=== PATIENT | female | born 1945 | race African-American/Black ===

== ENCOUNTER → 2017-11-27 | Day surgery (SDC) | payer OTHER | END | disposition home or self-care (01) | LOC: JRADIR 11:54 | PROVIDERS: ATTEND Nurse Practitioner Acute Care | PROC: 02HV33Z Insertion of Infusion Device into Superior Vena Cava, Percutaneous Approach (ICD-10-PCS; principal; 2017-11-27) | PROC: B518ZZA Fluoroscopy of Superior Vena Cava, Guidance (ICD-10-PCS; 2017-11-27) | DX: A49.02 Methicillin resistant Staphylococcus aureus infection, unspecified site (principal); Z79.2 Long term (current) use of antibiotics | CPT/HCPCS: 36569; 77001-TC-FY; C1751 ==

== ENCOUNTER 2018-11-26 14:14 | Inpatient (IN) | payer OTHER ==
--- NOTE | 2018-11-26 14:31 | PDOC ---
Rapid Medical Evaluation Time Seen by Provider: 11/26/18 14:27 Medical Evaluation: Allergies Allergy/AdvReac Type Severity Reaction Status Date / Time diphenhydramine Allergy Verified 10/07/18 10:55 [From Benadryl] Penicillins Allergy Verified 10/07/18 10:55 11/26/18 14:27 I performed a brief in-person evaluation of this patient. Chief complaint: Sent by Dr. King for admission to Dr. Eduardo for bilat LE ulcers and cellulitis Pertinent physical exam findings: SpO2 91% (baseline per patient) I have ordered the following: CBC, CMP, blood cultures, EKG, CXR Patient to proceed to the ED for further evaluation. Discharge Disposition - Diagnosis Cellulitis - Referrals - Patient Instructions - Post Discharge Activity
--- NOTE | 2018-11-26 15:16 | CON.ID ---
Consult Consult Specialty:: infectious diseases Referred by:: dr head Reason for Consultation:: b/l no healing ulcers of the leg - History of Present Illness Chief Complaint: pain swelling and erythema of he legs and draining non healing wound History of Present Illness: 73 year old female with a significant PMH of COPD, DM, GERD, HTN, cellulitis to the lower extremities, and malignant neoplasm of the sigmoid colon who presents to the emergency department for admission for IV abx 2/2 LE cellulitis. Patient is denying any symptoms at this time other than her chronic LE pain. Denies recent change in pain or new swelling in LE. patient had received oral abx of no avail The patient denies chest pain, shortness of breath, headache and dizziness. Denies fever, chills, nausea, vomit, diarrhea and constipation. Denies dysuria, frequency, urgency and hematuria. - History Source History Provided By: Patient Limitations to Obtaining History: No Limitations - Alcohol/Substance Use Hx Alcohol Use: No - Smoking History Smoking history: Never smoked Have you smoked in the past 12 months: No Aproximately how many cigarettes per day: 10 If you are a former smoker, when did you quit?: 2008 Home Medications - Allergies Allergies/Adverse Reactions: Allergies Allergy/AdvReac Type Severity Reaction Status Date / Time diphenhydramine Allergy Verified 01/14/19 11:50 [From Benadryl] Penicillins Allergy Verified 01/14/19 11:50 - Home Medications Home Medications: Ambulatory Orders Acetaminophen [Tylenol .Extra-Strength -] 500 mg PO Q6H PRN 11/26/18 Albuterol 2.5/Ipratropium 0.5 [Duoneb -] 1 amp NEB Q6H PRN 11/26/18 Albuterol Sulfate Inhaler - [Ventolin HFA Inhaler -] 2 inh PO Q6H 11/26/18 Amlodipine Besylate 5 mg PO DAILY 11/26/18 Ammonium Lactate Cream [Lac-Hydrin 12% Cream -] 1 applic TP QID 11/26/18 Ascorbic Acid [Vitamin C -] 500 mg PO DAILY 11/26/18 Aspirin [ASA -] 81 mg PO DAILY 11/26/18 Bismuth Subsalicylate [Pepto-Bismol -] 15 ml PO ASDIR PRN 11/26/18 Budesonide/Formeterol Fumarate [SYMBICORT 160/4.5mcg -] 2 inh PO BID 11/26/18 Celecoxib [CeleBREX -] 100 mg PO BID 11/26/18 Chloroxylenol 1 gm MC DAILY 11/26/18 Glimepiride [Amaryl -] 2 mg PO DAILY 11/26/18 Hydrocodone/Acetaminophen [Hydrocodone-Acetamin 7.5-325] 1 each PO Q6H 11/26/18 Lactobacillus Acidophilus [Bacid -] 1 each PO BID 11/26/18 Levothyroxine [Synthroid -] 100 mcg PO DAILY 11/26/18 Lisinopril 20 mg PO DAILY 11/26/18 Mag Hydrox/Al Hydrox/Simeth [Mylanta Oral Suspension -] 30 ml PO Q6H 11/26/18 Methyl Salicylate/Menth/Camph [Bengay Ultra Strength Cream] 113 gm TP BID Multivitamin,Ther and Minerals [Vitamin and Minerals] 1 each PO DAILY 11/26/18 Omeprazole 20 mg PO DAILY 11/26/18 Ondansetron [Zofran Odt -] 4 mg SL TID PRN 11/26/18 Simethicone [Gas-X] 125 mg PO QID 11/26/18 Umeclidinium [place] [Incruse Ellipta] 1 puff IH DAILY 11/26/18 Meropenem 1 gm IVPB Q8H 12/24/18 Furosemide [Lasix] 40 mg PO DAILY 01/25/19 Review of Systems - Review of Systems Constitutional: reports: No Symptoms Eyes: reports: No Symptoms HENT: reports: No Symptoms Neck: reports: No Symptoms Cardiovascular: reports: No Symptoms Respiratory: reports: No Symptoms Gastrointestinal: reports: No Symptoms Genitourinary: reports: No Symptoms Musculoskeletal: reports: Other Integumentary: reports: Blister, Bruising, Erythema Neurological: reports: No Symptoms Endocrine: reports: No Symptoms Hematology/Lymphatic: reports: No Symptoms Psychiatric: reports: No Symptoms Physical Exam Vital Signs: Vital Signs Temperature 98.4 F 11/26/18 14:26 Pulse Rate 90 11/26/18 14:26 Respiratory Rate 20 11/26/18 14:26 Blood Pressure 131/95 11/26/18 14:26 O2 Sat by Pulse Oximetry (%) 96 03/15/19 14:26 Constitutional: Yes: Well Nourished, No Distress, Calm, Obese HENT: Yes: Atraumatic, Normocephalic Neck: Yes: Supple, Trachea Midline Cardiovascular: Yes: Regular Rate and Rhythm Respiratory: Yes: Regular, CTA Bilaterally Gastrointestinal: Yes: Normal Bowel Sounds, Soft Musculoskeletal: Yes: Other Extremities: Yes: Erythema, Other Integumentary: Yes: Erythema, Other Wound/Incision: Yes: Dressing Removed, Other Neurological: Yes: Alert, Oriented Psychiatric: Yes: Alert, Oriented Imaging - Results Chest X-ray: Report Reviewed, Image Reviewed Assessment/Plan Problem List - Problems (1) Cellulitis Code(s): L03.90 - CELLULITIS, UNSPECIFIED (2) 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
--- NOTE | 2018-11-26 17:35 | PDOC ---
History of Present Illness - General Chief Complaint: Redness To Affected Area Stated Complaint: SENT BY PCP/LEG INFECTION Time Seen by Provider: 11/26/18 14:27 - History of Present Illness Initial Comments: 11/26/18 17:34 The patient is a 73 year old female with a significant PMH of COPD, DM, GERD, HTN, cellulitis to the lower extremities, and malignant neoplasm of the sigmoid colon who presents to the emergency department sent in by Dr. King, infectious diseases for admission for IV abx / LE cellulitis. Patient is denying any symptoms at this time other than her chronic LE pain. Denies recent change in pain or new swelling in LE. The patient denies chest pain, shortness of breath, headache and dizziness. Denies fever, chills, nausea, vomit, diarrhea and constipation. Denies dysuria, frequency, urgency and hematuria. Allergies: NKA Past surgical history: None reported. Social history: No reported alcohol or drug use. Former smoker. Past History - Past Medical History Allergies/Adverse Reactions: Allergies Allergy/AdvReac Type Severity Reaction Status Date / Time diphenhydramine Allergy Verified 10/07/18 10:55 [From Benadryl] Penicillins Allergy Verified 10/07/18 10:55 Home Medications: Ambulatory Orders Acetaminophen [Tylenol -] 500 mg PO Q6H PRN 11/26/18 Albuterol 2.5/Ipratropium 0.5 [Duoneb -] 1 amp NEB Q6H PRN 11/26/18 Albuterol Sulfate Inhaler - [Ventolin Hfa Inhaler -] 2 inh PO Q6H 11/26/18 Amlodipine Besylate 5 mg PO DAILY 11/26/18 Ammonium Lactate Cream [Lac-Hydrin 12% *Cream*] 1 applic TP QID 11/26/18 Ascorbic Acid [Vitamin C -] 500 mg PO DAILY 11/26/18 Aspirin [ASA -] 81 mg PO DAILY 11/26/18 Bismuth Subsalicylate [Pepto-Bismol -] 15 ml PO ASDIR PRN 11/26/18 Budesonide/Formeterol Fumarate [SYMBICORT 160/4.5mcg -] 2 inh PO BID 11/26/18 Celecoxib [Celebrex -] 100 mg PO BID 11/26/18 Chloroxylenol 1 gm MC DAILY 11/26/18 Glimepiride [Amaryl -] 2 mg PO DAILY 11/26/18 Hydrocodone/Acetaminophen [Hydrocodon-Acetaminoph 7.5-325] 1 each PO Q6H Lactobacillus Acidophilus [Bacid -] 1 each PO BID 11/26/18 Levothyroxine [Synthroid -] 100 mcg PO DAILY 11/26/18 Lisinopril 20 mg PO DAILY 11/26/18 Mag Hydrox/Al Hydrox/Simeth [Mylanta *Suspension*] 30 ml PO Q6H 11/26/18 Methyl Salicylate/Menth/Camph [Bengay Pain Relieving Cream] 113 gm TP BID Multivitamin,Ther and Minerals [Vitamin and Minerals] 1 each PO DAILY 11/26/18 Omeprazole 20 mg PO DAILY 11/26/18 Ondansetron [Zofran Odt -] 4 mg SL TID PRN 11/26/18 Simethicone [Gas-X] 125 mg PO QID 11/26/18 Umeclidinium [place] [Incruse Ellipta] 1 puff IH DAILY 11/26/18 Cancer: Yes (colon) COPD: Yes Diabetes: Yes HTN: Yes - Suicide/Smoking/Psychosocial Hx Smoking History: Never smoked Have you smoked in the past 12 months: No Number of Cigarettes Smoked Daily: 10 If you are a former smoker, when did you quit?: 2008 Information on smoking cessation initiated: No Hx Alcohol Use: No Drug/Substance Use Hx: No Review of Systems - Review of Systems Comments:: 11/26/18 17:35 GENERAL/CONSTITUTIONAL: No fever or chills. No weakness. HEAD, EYES, EARS, NOSE AND THROAT: No change in vision. No ear pain or discharge. No sore throat. GASTROINTESTINAL: No nausea, vomiting, diarrhea or constipation. GENITOURINARY: No dysuria, frequency, or change in urination. CARDIOVASCULAR: No chest pain or shortness of breath. RESPIRATORY: No cough, wheezing, or hemoptysis. MUSCULOSKELETAL: +b/l LE pain. No neck or back pain. SKIN: No rash NEUROLOGIC: No headache, vertigo, loss of consciousness, or change in strength/ sensation. ENDOCRINE: No increased thirst. No abnormal weight change. HEMATOLOGIC/LYMPHATIC: No anemia, easy bleeding, or history of blood clots. ALLERGIC/IMMUNOLOGIC: No hives or skin allergy. *Physical Exam - Vital Signs Last Vital Signs Temp Pulse Resp BP Pulse Ox 98.4 F 90 20 131/95 96 11/26/18 14:26 11/26/18 14:26 11/26/18 14:26 11/26/18 14:26 11/26/18 14:26 - Physical Exam Comments: 11/26/18 17:36 GENERAL: Awake, alert, and fully oriented, in no acute distress HEAD: No signs of trauma EYES: EOMI, sclera anicteric, conjunctiva clear ENT: Oropharynx clear without exudates. Moist mucosa LUNGS: Breath sounds equal, clear to auscultation bilaterally. No wheezes, and no crackles HEART: Regular rate and rhythm, normal S1 and S2, no murmurs, rubs or gallops ABDOMEN: Soft, nontender, normoactive bowel sounds. No guarding, no rebound. No masses EXTREMITIES: b/l LE cellulitis NEUROLOGICAL: Normal speech, cranial nerves intact, equal strength and sensation b/l Moderate Sedation - Procedure Monitoring Vital Signs: Procedure Monitoring Vital Signs Temperature 98.4 F 11/26/18 14:26 Pulse Rate 90 11/26/18 14:26 Respiratory Rate 20 11/26/18 14:26 Blood Pressure 131/95 11/26/18 14:26 O2 Sat by Pulse Oximetry (%) 96 11/26/18 14:26 ED Treatment Course - LABORATORY CBC & Chemistry Diagram: 11/26/18 19:25 11/26/18 19:22 Medical Decision Making - Medical Decision Making 11/26/18 17:30 73yo F hx COPD, DM, colon ca, venous insufficiency, hypothyroidism presents to the ED for admission 2/2 VRE on outpt cultures from LE. Per Dr. King, pt has fulminiant cellulitis, he recommends linezolid (he has ordered) and to add ertapenem 1G if her kidney function is ok. Labs currently pending. 11/26/18 19:[address] IV/obtain labs despite multiple attempts Long 20G US guided IV placed in L forearm, labs drawn and sent Pending kidney fx, pt will need ertapenem abx Case signed out to oncoming attending for f/u on labs, ordering IV abx if kidney fx wnl *DC/Admit/Observation/Transfer Diagnosis at time of Disposition: Cellulitis - Discharge Dispostion Decision to Admit order Date/Time: Decision to Admit Order Category Date Time Status Decision to Admit to Hospital Routine Admission 11/26/18 16:42 Active - Referrals - Patient Instructions - Post Discharge Activity
--- NOTE | 2018-11-26 18:10 | HP ---
Admitting History and Physical - Primary Care Physician PCP: Lily Eduardo - Admission Chief Complaint: b/l teresa cellulitis History of Present Illness: 73 year old female with a significant PMH of COPD, DM, GERD, HTN, cellulitis to the lower extremities, and malignant neoplasm of the sigmoid colon who presents to the emergency department sent in by Dr. King, infectious diseases for admission for IV abx 2/ LE cellulitis. Patient is denying any symptoms at this time other than her chronic LE pain. Denies recent change in pain or new swelling in LE. - Past Medical History Cardiovascular: Yes: HTN Gastrointestinal: Yes: GERD Endocrine: Yes: Diabetes Mellitus - Smoking History Smoking history: Never smoked Have you smoked in the past 12 months: No Aproximately how many cigarettes per day: 10 If you are a former smoker, when did you quit?: 2008 - Alcohol/Substance Use Hx Alcohol Use: No Home Medications - Allergies Allergies/Adverse Reactions: Allergies Allergy/AdvReac Type Severity Reaction Status Date / Time diphenhydramine Allergy Verified 10/07/18 10:55 [From Benadryl] Penicillins Allergy Verified 10/07/18 10:55 - Home Medications Home Medications: Ambulatory Orders Acetaminophen [Tylenol -] 500 mg PO Q6H PRN 11/26/18 Albuterol 2.5/Ipratropium 0.5 [Duoneb -] 1 amp NEB Q6H PRN 11/26/18 Albuterol Sulfate Inhaler - [Ventolin Hfa Inhaler -] 2 inh PO Q6H 11/26/18 Amlodipine Besylate 5 mg PO DAILY 11/26/18 Ammonium Lactate Cream [Lac-Hydrin 12% *Cream*] 1 applic TP QID 11/26/18 Ascorbic Acid [Vitamin C -] 500 mg PO DAILY 11/26/18 Aspirin [ASA -] 81 mg PO DAILY 11/26/18 Bismuth Subsalicylate [Pepto-Bismol -] 15 ml PO ASDIR PRN 11/26/18 Budesonide/Formeterol Fumarate [SYMBICORT 160/4.5mcg -] 2 inh PO BID 11/26/18 Celecoxib [Celebrex -] 100 mg PO BID 11/26/18 Chloroxylenol 1 gm MC DAILY 11/26/18 Glimepiride [Amaryl -] 2 mg PO DAILY 11/26/18 Hydrocodone/Acetaminophen [Hydrocodon-Acetaminoph 7.5-325] 1 each PO Q6H Lactobacillus Acidophilus [Bacid -] 1 each PO BID 11/26/18 Levothyroxine [Synthroid -] 100 mcg PO DAILY 11/26/18 Lisinopril 20 mg PO DAILY 11/26/18 Mag Hydrox/Al Hydrox/Simeth [Mylanta *Suspension*] 30 ml PO Q6H 11/26/18 Methyl Salicylate/Menth/Camph [Bengay Pain Relieving Cream] 113 gm TP BID Multivitamin,Ther and Minerals [Vitamin and Minerals] 1 each PO DAILY 11/26/18 Omeprazole 20 mg PO DAILY 11/26/18 Ondansetron [Zofran Odt -] 4 mg SL TID PRN 11/26/18 Simethicone [Gas-X] 125 mg PO QID 11/26/18 Umeclidinium [place] [Incruse Ellipta] 1 puff IH DAILY 11/26/18 Physical Examination Vital Signs: Vital Signs Temperature 98.4 F 11/26/18 14:26 Pulse Rate 90 11/26/18 14:26 Respiratory Rate 20 11/26/18 14:26 Blood Pressure 131/95 11/26/18 14:26 O2 Sat by Pulse Oximetry (%) 96 11/26/18 14:26 Constitutional: Yes: No Distress HENT: Yes: Atraumatic Neck: Yes: Supple Cardiovascular: Yes: Regular Rate and Rhythm Respiratory: Yes: CTA Bilaterally Gastrointestinal: Yes: Normal Bowel Sounds Extremities: Yes: Other (b/llex cellulitis) Neurological: Yes: Alert, Oriented Problem List - Problems (1) Cellulitis Assessment/Plan: on iv abx wound care dressing change Code(s): L03.90 - CELLULITIS, UNSPECIFIED (2) 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 Code(s): I87.333 - CHRONIC VENOUS HTN W ULCER AND INFLAM OF BILATERAL LOW EXTRM ; L97.919 - NON-PRS CHRONIC ULC UNSP PRT OF R LOW LEG W UNSP SEVERITY; L97.929 - NON-PRS CHRONIC ULC UNSP PRT OF L LOW LEG W UNSP SEVERITY (3) HTN (hypertension) Assessment/Plan: onmeds monitor bp Code(s): I10 - ESSENTIAL (PRIMARY) HYPERTENSION (4) Diabetes Assessment/Plan: on insulin bgms Code(s): E11.9 - TYPE 2 DIABETES MELLITUS WITHOUT COMPLICATIONS Assessment/Plan Active Medications Generic Name Dose Route Start Last Admin Trade Name Freq PRN Reason Stop Dose Admin Linezolid 600 mg 11/26/18 22:00 Zyvox (Restricted To Id) - PO BID ROMEL Active Medications Generic Name Dose Route Start Last Admin Trade Name Freq PRN Reason Stop Dose Admin Acetaminophen 650 mg 11/26/18 18:14 11/29/18 16:49 Tylenol - PO 650 mg Q6H PRN Administration FEVER Amlodipine Besylate 5 mg 11/27/18 10:00 11/29/18 09:12 Norvasc - PO 5 mg DAILY ROMEL Administration Aspirin 81 mg 11/27/18 10:00 11/29/18 09:12 Asa - PO 81 mg DAILY ROMEL Administration Budesonide/Formoterol Fumarate 2 puff 11/26/18 22:00 11/29/18 09:13 Symbicort 160/4.5mcg - IH 2 puff BID ROMEL Administration Docusate Sodium 100 mg 11/26/18 18:14 Colace - PO Q12H PRN CONSTIPATION Furosemide 40 mg 11/27/18 10:00 11/29/18 09:12 Lasix - PO 40 mg DAILY ROMEL Administration Glimepiride 2 mg 11/27/18 07:00 11/29/18 09:12 Amaryl - PO 2 mg DAILY@0700 ROMEL Administration Heparin Sodium (Porcine) 5,000 unit 11/26/18 22:00 11/29/18 09:12 Heparin - SQ 5,000 unit BID ROMEL Administration Linezolid 600 mg in 300 mls @ 300 mls/hr 11/27/18 18:00 11/29/18 17:37 Zyvox 600 Mg Premix Bag (Restricted To Id) - IVPB 300 mls/hr BID@0600,1800 ROMEL Administration Protocol Meropenem 1 gm/ Dextrose 100 mls @ 200 mls/hr 11/27/18 18:00 11/29/18 17:09 IVPB 200 mls/hr Q8H-IV ROMEL Administration Insulin Aspart 1 vial 11/26/18 22:00 11/29/18 16:46 Novolog Vial Sliding Scale - SQ Not Given ACHS ROMEL Protocol Levothyroxine Sodium 100 mcg 11/27/18 07:00 11/29/18 06:26 Synthroid - PO 100 mcg DAILY@0700 ROMEL Administration Lisinopril 20 mg 11/27/18 10:00 11/29/18 09:12 Prinivil PO 20 mg DAILY ROMEL Administration Pantoprazole Sodium 20 mg 11/27/18 10:00 11/29/18 09:12 Protonix - PO 20 mg DAILY ROMEL Administration
[2018-11-26] MEDS ORDERED: LIDOCAINE 2.5%/PRILOCAINE 2.5% (5 Gram/TUBE) TP ONE (18:53)
[2018-11-26 20:00] LABS: BASO % 0.9 % (0-2.0); EOS % 5.5 % (0-4.5); HEMATOCRIT 32.5 % (32.4-45.2); HEMOGLOBIN 9.9 GM/dL (10.7-15.3); MCH 25.2 pg (25.7-33.7); MCHC 30.6 g/dl (32.0-36.0); MEAN CELL VOLUME 82.5 fl (80-96); MEAN PLT VOLUME 8.2 fl (7.5-11.1); MONO % 8.2 % (3.8-10.2); NEUT % 68.4 % (42.8-82.8); PLATELET COUNT 471 K/MM3 (134-434); RBC 3.94 M/mm3 (3.60-5.2); RDW 20.9 % (11.6-15.6); WHITE BLOOD COUNT 10.8 K/mm3 (4.0-10.0)
[2018-11-26 20:47] LABS: ALBUMIN 2.9 g/dl (3.4-5.0); ALK PHOS 142 U/L (45-117); ANION GAP 5 MMOL/L (8-16); BILIRUBIN,TOTAL 0.3 mg/dL (0.2-1); BLOOD UREA NITROGEN 25 mg/dL (7-18); CALCIUM 9.9 mg/dL (8.5-10.1); CHLORIDE 101 mmol/L (98-107); CO2 33 mmol/L (21-32); CREATININE 1.1 mg/dL (0.55-1.3); GLUCOSE,RANDOM 176 mg/dL (74-106); POTASSIUM 5.2 mmol/L (3.5-5.1); SGOT/AST 32 U/L (15-37); SGPT/ALT 15 U/L (13-61); SODIUM 139 mmol/L (136-145)
[2018-11-26 21:12] LABS: ANISOCYTOSIS 1+
[2018-11-26] MEDS ORDERED: oxyCODONE HCL 5 MG TABLET ONE (21:42)
[2018-11-26] MEDS: oxyCODONE HCL 5 MG TABLET PO PRN (21:44)
[2018-11-26] MEDS: HEPARIN NA (PORCINE) 5,000 UNITS/ML 1ML VIAL SQ SCH (23:47)
[2018-11-26] MEDS: BUDESONIDE/FORMETEROL FUMARATE 160/4.5 mcg INHALER IH SCH (23:47)
[2018-11-26] MEDS: LINEZOLID 600 MG TABLET (RESTRICTED TO ID) PO SCH (23:47)
[2018-11-26] MEDS ORDERED: INSULIN (NOVOLOG) ASPART 100 UNITS/ML 10ML VIAL ONE (23:49)
[2018-11-26] MEDS: INSULIN SLIDING SCALE (NOVOLOG) 1 VIAL SQ SCH (23:50)
[2018-11-27] MEDS: oxyCODONE HCL 5 MG TABLET PO PRN ×3 (04:52→23:04)
[2018-11-27] MEDS: ACETAMINOPHEN 325 MG TABLET (FP) PO PRN (04:54)
[2018-11-27] MEDS: INSULIN SLIDING SCALE (NOVOLOG) 1 VIAL SQ SCH ×4 (06:29→22:50)
[2018-11-27] MEDS: GLIMEPIRIDE 2 MG TABLET (FP) PO SCH (06:29)
[2018-11-27] MEDS: LEVOTHYROXINE NA 100 MCG TABLET (FP) PO SCH (06:30)
[2018-11-27 06:58] LABS: BASO % 0.5 % (0-2.0); EOS % 3.8 % (0-4.5); HEMATOCRIT 32.6 % (32.4-45.2); HEMOGLOBIN 9.9 GM/dL (10.7-15.3); LYMPH % 19.9 % (8-40); MCH 24.8 pg (25.7-33.7); MCHC 30.3 g/dl (32.0-36.0); MONO % 8.1 % (3.8-10.2); NEUT % 67.7 % (42.8-82.8); PLATELET COUNT 433 K/MM3 (134-434); RBC 3.97 M/mm3 (3.60-5.2); RDW 20.6 % (11.6-15.6); WHITE BLOOD COUNT 9.7 K/mm3 (4.0-10.0)
[2018-11-27 07:34] LABS: ALBUMIN 2.8 g/dl (3.4-5.0); ALK PHOS 140 U/L (45-117); ANION GAP 6 MMOL/L (8-16); BILIRUBIN,TOTAL 0.4 mg/dL (0.2-1); BLOOD UREA NITROGEN 27 mg/dL (7-18); CALCIUM 9.3 mg/dL (8.5-10.1); CHLORIDE 102 mmol/L (98-107); CO2 31 mmol/L (21-32); CREATININE 1.3 mg/dL (0.55-1.3); GLUCOSE,RANDOM 169 mg/dL (74-106); POTASSIUM 4.8 mmol/L (3.5-5.1); SGOT/AST 11 U/L (15-37); SGPT/ALT 11 U/L (13-61); SODIUM 139 mmol/L (136-145); TOT PROT 7.7 g/dl (6.4-8.2)
[2018-11-27] MEDS ORDERED: PT OWN MED DRAWER 7, Y5N ONE ×3 (09:00→10:47)
[2018-11-27] MEDS: ASPIRIN 81 MG CHEWABLE TABLETS PO SCH (10:57)
[2018-11-27] MEDS: amLODIPine BESYLATE 5 MG TABLET (FP) PO SCH (10:58)
[2018-11-27] MEDS: LISINOPRIL 20 MG TABLET (FP) PO SCH (10:58)
[2018-11-27] MEDS: FUROSEMIDE 40 MG TABLET (FP) PO SCH (10:58)
[2018-11-27] MEDS: PANTOPRAZOLE 20 MG TABLET (FP) PO SCH (10:59)
[2018-11-27] MEDS: HEPARIN NA (PORCINE) 5,000 UNITS/ML 1ML VIAL SQ SCH ×2 (10:59→22:49)
[2018-11-27] MEDS: BUDESONIDE/FORMETEROL FUMARATE 160/4.5 mcg INHALER IH SCH ×2 (11:00→22:52)
[2018-11-27] MEDS: LINEZOLID 600 MG TABLET (RESTRICTED TO ID) PO SCH ×2 (11:10→11:15)
--- NOTE | 2018-11-27 13:14 | EKG ---
Test Reason : Blood Pressure : / mmHG Vent. Rate : 071 BPM Atrial Rate : 071 BPM P-R Int : 190 ms QRS Dur : 102 ms QT Int : 378 ms P-R-T Axes : 044 -20 047 degrees QTc Int : 410 ms NORMAL SINUS RHYTHM MINIMAL VOLTAGE CRITERIA FOR LVH, MAY BE NORMAL VARIANT BORDERLINE ECG NO PREVIOUS ECGS AVAILABLE Confirmed by MD ADAN, NATALIA ([id number]) on 11/27/2018 1:14:13 PM Referred By: Confirmed By:NATALIA ARELLANO MD
--- NOTE | 2018-11-27 15:32 | PN ---
Progress Note, Physician - Current Medication List Current Medications: Active Medications Acetaminophen (Tylenol -) 650 mg PO Q6H PRN PRN Reason: FEVER Last Admin: 11/27/18 04:54 Dose: 650 mg Amlodipine Besylate (Norvasc -) 5 mg PO DAILY [facility] Last Admin: 11/27/18 10:58 Dose: 5 mg Aspirin (Asa -) 81 mg PO DAILY [facility] Last Admin: 11/27/18 10:57 Dose: 81 mg Budesonide/Formoterol Fumarate (Symbicort 160/4.5mcg -) 2 puff IH BID [facility] Last Admin: 11/27/18 11:00 Dose: 2 puff Docusate Sodium (Colace -) 100 mg PO Q12H PRN PRN Reason: CONSTIPATION Furosemide (Lasix -) 40 mg PO DAILY [facility] Last Admin: 11/27/18 10:58 Dose: 40 mg Glimepiride (Amaryl -) 2 mg PO DAILY@0700 [facility] Last Admin: 11/27/18 06:29 Dose: 2 mg Heparin Sodium (Porcine) (Heparin -) 5,000 unit SQ BID [facility] Last Admin: 11/27/18 10:59 Dose: 5,000 unit Insulin Aspart (Novolog Vial Sliding Scale -) 1 vial SQ [facility]; Protocol Last Admin: 11/27/18 11:26 Dose: Not Given Levothyroxine Sodium (Synthroid -) 100 mcg PO DAILY@0700 [facility] Last Admin: 11/27/18 06:30 Dose: 100 mcg Linezolid (Zyvox (Restricted To Id) -) 600 mg PO BID [facility] Last Admin: 11/27/18 11:15 Dose: 600 mg Lisinopril (Prinivil) 20 mg PO DAILY [facility] Last Admin: 11/27/18 10:58 Dose: 20 mg Oxycodone HCl (Roxicodone -) 10 mg PO Q6H PRN PRN Reason: PAIN LEVEL 4 - 6 Last Admin: 11/27/18 10:55 Dose: 10 mg Pantoprazole Sodium (Protonix -) 20 mg PO DAILY [facility] Last Admin: 11/27/18 10:59 Dose: 20 mg - Objective Vital Signs: Vital Signs Temperature 97.4 F L 11/27/18 13:22 Pulse Rate 78 11/27/18 13:22 Respiratory Rate 16 11/27/18 13:22 Blood Pressure 151/52 L 11/27/18 13:22 O2 Sat by Pulse Oximetry (%) 94 L 11/27/18 09:00 Constitutional: Yes: No Distress HENT: Yes: Atraumatic Neck: Yes: Supple Cardiovascular: Yes: Regular Rate and Rhythm Respiratory: Yes: CTA Bilaterally Gastrointestinal: Yes: Normal Bowel Sounds Extremities: Yes: WNL Edema: No Peripheral Pulses WNL: Yes Neurological: Yes: Alert, Oriented Labs: CBC, BMP 11/27/18 05:20 11/27/18 05:20 Problem List - Problems (1) Cellulitis Assessment/Plan: on iv abx wound care dressing change Code(s): L03.90 - CELLULITIS, UNSPECIFIED (2) 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
--- NOTE | 2018-11-27 15:40 | PN ---
Progress Note (short form) - Note Progress Note: Vascular Surgery Pt seen and examined in wound care clinic yesterday. Pt with LLE weeping, with cellulitis . Can not be controlled with po antibiotics. Pt sent to ER for IV antibiotics. Pt needs alginate and sergio for compression for wound care. ID on case. Lavell Kern DO
--- NOTE | 2018-11-27 18:01 | PN ---
Progress Note, Physician History of Present Illness: Pt seen and examined. Events noted. Labs reviewed. She c/o severe LLE pain, remains febrile. No distress. - Current Medication List Current Medications: Active Medications Acetaminophen (Tylenol -) 650 mg PO Q6H PRN PRN Reason: FEVER Last Admin: 11/27/18 04:54 Dose: 650 mg Amlodipine Besylate (Norvasc -) 5 mg PO DAILY [facility] Last Admin: 11/27/18 10:58 Dose: 5 mg Aspirin (Asa -) 81 mg PO DAILY [facility] Last Admin: 11/27/18 10:57 Dose: 81 mg Budesonide/Formoterol Fumarate (Symbicort 160/4.5mcg -) 2 puff IH BID [facility] Last Admin: 11/27/18 11:00 Dose: 2 puff Docusate Sodium (Colace -) 100 mg PO Q12H PRN PRN Reason: CONSTIPATION Furosemide (Lasix -) 40 mg PO DAILY [facility] Last Admin: 11/27/18 10:58 Dose: 40 mg Glimepiride (Amaryl -) 2 mg PO DAILY@0700 [facility] Last Admin: 11/27/18 06:29 Dose: 2 mg Heparin Sodium (Porcine) (Heparin -) 5,000 unit SQ BID [facility] Last Admin: 11/27/18 10:59 Dose: 5,000 unit Linezolid 600 mg/ (Miscellaneous) 300 mls @ 300 mls/hr IVPB Q12H [facility]; Protocol Meropenem 1 gm/ Dextrose 100 mls @ 200 mls/hr IVPB Q8H-IV [facility] Insulin Aspart (Novolog Vial Sliding Scale -) 1 vial SQ ACHS [facility]; Protocol Last Admin: 11/27/18 16:42 Dose: Not Given Levothyroxine Sodium (Synthroid -) 100 mcg PO DAILY@0700 [facility] Last Admin: 11/27/18 06:30 Dose: 100 mcg Lisinopril (Prinivil) 20 mg PO DAILY [facility] Last Admin: 11/27/18 10:58 Dose: 20 mg Oxycodone HCl (Roxicodone -) 10 mg PO Q6H PRN PRN Reason: PAIN LEVEL 4 - 6 Last Admin: 11/27/18 10:55 Dose: 10 mg Pantoprazole Sodium (Protonix -) 20 mg PO DAILY [facility] Last Admin: 11/27/18 10:59 Dose: 20 mg - Objective Vital Signs: Vital Signs Temperature 98.2 F 11/27/18 17:45 Pulse Rate 70 11/27/18 17:45 Respiratory Rate 73 H 11/27/18 17:45 Blood Pressure 134/62 11/27/18 17:45 O2 Sat by Pulse Oximetry (%) 94 L 11/27/18 09:00 Constitutional: Yes: No Distress Eyes: Yes: Conjunctiva Clear Cardiovascular: Yes: Regular Rate and Rhythm Respiratory: Yes: Regular Gastrointestinal: Yes: Normal Bowel Sounds, Soft, Abdomen, Obese ...Rectal Exam: Yes: Other (+colostomy) Extremities: Yes: Erythema Edema: LLE: 2+, RLE: 2+ Wound/Incision: Yes: Other (LLE ulcers oozing +malodor, +warmth/erythema/ tenderness) Neurological: Yes: Alert Labs: CBC, BMP 11/27/18 05:20 11/27/18 05:20 Laboratory Tests 11/26/18 11/26/18 11/26/18 19:22 19:25 20:11 WBC 10.8 H RBC 3.94 Hgb 9.9 L Hct 32.5 MCV 82.5 MCH 25.2 L MCHC 30.6 L RDW 20.9 H Plt Count 471 H MPV 8.2 Absolute Neuts (auto) 7.4 Neutrophils % 68.4 Lymphocytes % 17.0 Monocytes % 8.2 Eosinophils % 5.5 H Basophils % 0.9 Nucleated RBC % 0 Hypochromia 1+ Anisocytosis 1+ Sodium 139 Potassium 5.2 H Chloride 101 Carbon Dioxide 33 H Anion Gap 5 L BUN 25 H Creatinine 1.1 Creat Clearance w eGFR 48.96 POC Glucometer Random Glucose 176 H Hemoglobin A1c % 7.8 H Calcium 9.9 Total Bilirubin 0.3 AST 32 ALT 15 Alkaline Phosphatase 142 H Total Protein 8.0 Albumin 2.9 L 11/26/18 11/27/18 11/27/18 23:43 05:20 05:20 WBC 9.7 RBC 3.97 Hgb 9.9 L Hct 32.6 MCV 82.0 MCH 24.8 L MCHC 30.3 L RDW 20.6 H Plt Count 433 MPV 8.0 Absolute Neuts (auto) 6.6 Neutrophils % 67.7 Lymphocytes % 19.9 Monocytes % 8.1 Eosinophils % 3.8 Basophils % 0.5 Nucleated RBC % 0 Hypochromia Anisocytosis Sodium 139 Potassium 4.8 Chloride 102 Carbon Dioxide 31 Anion Gap 6 L BUN 27 H Creatinine 1.3 Creat Clearance w eGFR 40.38 POC Glucometer 176 Random Glucose 169 H Hemoglobin A1c % Calcium 9.3 Total Bilirubin 0.4 AST 11 L ALT 11 L Alkaline Phosphatase 140 H Total Protein 7.7 Albumin 2.8 L 11/27/18 11/27/18 11/27/18 06:28 11:09 16:28 WBC RBC Hgb Hct MCV MCH MCHC RDW Plt Count MPV Absolute Neuts (auto) Neutrophils % Lymphocytes % Monocytes % Eosinophils % Basophils % Nucleated RBC % Hypochromia Anisocytosis Sodium Potassium Chloride Carbon Dioxide Anion Gap BUN Creatinine Creat Clearance w eGFR POC Glucometer 153 183 121 Random Glucose Hemoglobin A1c % Calcium Total Bilirubin AST ALT Alkaline Phosphatase Total Protein Albumin Problem List - Problems (1) Cellulitis Code(s): L03.90 - CELLULITIS, UNSPECIFIED (2) 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 Code(s): I87.333 - CHRONIC VENOUS HTN W ULCER AND INFLAM OF BILATERAL LOW EXTRM ; L97.919 - NON-PRS CHRONIC ULC UNSP PRT OF R LOW LEG W UNSP SEVERITY; L97.929 - NON-PRS CHRONIC ULC UNSP PRT OF L LOW LEG W UNSP SEVERITY Assessment/Plan Infected LE ulcers/cellulitis DM Colon CA s/p resection/chemo hypothyroidism BP disorder COPD -- Recent wound cultures reviewed, polymicrobial infection -- continue Zyvox, add Meropenem (monitor closely for signs of allergic reaction as d/w RN) -- continue wound care, elevate legs -- follow up blood culture results
[2018-11-27] MEDS: MEROPENEM 1 GM in DEXTROSE 5%-WATER 100 ML IVPB SCH ×2 (18:09→21:15)
[2018-11-27] MEDS: LINEZOLID 600 MG PREMIX BAG 600 MG/300 ML BAG IVPB SCH (21:15)
[2018-11-28] MEDS ORDERED: PT OWN MED DRAWER 7, Y5N ONE ×5 (01:20→21:09)
[2018-11-28] MEDS: MEROPENEM 1 GM in DEXTROSE 5%-WATER 100 ML IVPB SCH ×3 (01:33→18:21)
[2018-11-28] MEDS: LINEZOLID 600 MG PREMIX BAG 600 MG/300 ML BAG IVPB SCH ×2 (05:23→18:21)
[2018-11-28] MEDS: GLIMEPIRIDE 2 MG TABLET (FP) PO SCH (06:30)
[2018-11-28] MEDS: LEVOTHYROXINE NA 100 MCG TABLET (FP) PO SCH (06:30)
[2018-11-28] MEDS: INSULIN SLIDING SCALE (NOVOLOG) 1 VIAL SQ SCH ×4 (06:31→21:27)
[2018-11-28] MEDS: amLODIPine BESYLATE 5 MG TABLET (FP) PO SCH (09:43)
[2018-11-28] MEDS: ASPIRIN 81 MG CHEWABLE TABLETS PO SCH (09:43)
[2018-11-28] MEDS: PANTOPRAZOLE 20 MG TABLET (FP) PO SCH (09:43)
[2018-11-28] MEDS: HEPARIN NA (PORCINE) 5,000 UNITS/ML 1ML VIAL SQ SCH ×2 (09:43→21:25)
[2018-11-28] MEDS: LISINOPRIL 20 MG TABLET (FP) PO SCH (09:43)
[2018-11-28] MEDS: FUROSEMIDE 40 MG TABLET (FP) PO SCH (09:43)
[2018-11-28] MEDS: oxyCODONE HCL 5 MG TABLET PO PRN ×2 (10:05→18:21)
[2018-11-28] MEDS: BUDESONIDE/FORMETEROL FUMARATE 160/4.5 mcg INHALER IH SCH ×2 (10:10→21:20)
[2018-11-28] MEDS: ACETAMINOPHEN 325 MG TABLET (FP) PO PRN ×2 (10:10→18:22)
--- NOTE | 2018-11-28 10:53 | PN ---
Progress Note, Physician History of Present Illness: Pt without new complaints. Remains afebrile. C/o LE pain L>R - Current Medication List Current Medications: Active Medications Acetaminophen (Tylenol -) 650 mg PO Q6H PRN PRN Reason: FEVER Last Admin: 11/28/18 10:10 Dose: 650 mg Amlodipine Besylate (Norvasc -) 5 mg PO DAILY [facility] Last Admin: 11/28/18 09:43 Dose: 5 mg Aspirin (Asa -) 81 mg PO DAILY [facility] Last Admin: 11/28/18 09:43 Dose: 81 mg Budesonide/Formoterol Fumarate (Symbicort 160/4.5mcg -) 2 puff IH BID [facility] Last Admin: 11/28/18 10:10 Dose: 2 puff Docusate Sodium (Colace -) 100 mg PO Q12H PRN PRN Reason: CONSTIPATION Furosemide (Lasix -) 40 mg PO DAILY [facility] Last Admin: 11/28/18 09:43 Dose: 40 mg Glimepiride (Amaryl -) 2 mg PO DAILY@0700 [facility] Last Admin: 11/28/18 06:30 Dose: 2 mg Heparin Sodium (Porcine) (Heparin -) 5,000 unit SQ BID [facility] Last Admin: 11/28/18 09:43 Dose: 5,000 unit Linezolid (Zyvox 600 Mg Premix Bag (Restricted To Id) -) 600 mg in 300 mls @ 300 mls/hr IVPB BID@0600,1800 [facility]; Protocol Last Admin: 11/28/18 05:23 Dose: 300 mls/hr Meropenem 1 gm/ Dextrose 100 mls @ 200 mls/hr IVPB Q8H-IV [facility] Last Admin: 11/28/18 09:43 Dose: 200 mls/hr Insulin Aspart (Novolog Vial Sliding Scale -) 1 vial SQ ACHS [facility]; Protocol Last Admin: 11/28/18 06:31 Dose: Not Given Levothyroxine Sodium (Synthroid -) 100 mcg PO DAILY@0700 [facility] Last Admin: 11/28/18 06:30 Dose: 100 mcg Lisinopril (Prinivil) 20 mg PO DAILY [facility] Last Admin: 11/28/18 09:43 Dose: 20 mg Oxycodone HCl (Roxicodone -) 10 mg PO Q6H PRN PRN Reason: PAIN LEVEL 4 - 6 Last Admin: 11/28/18 10:05 Dose: 10 mg Pantoprazole Sodium (Protonix -) 20 mg PO DAILY [facility] Last Admin: 11/28/18 09:43 Dose: 20 mg - Objective Vital Signs: Vital Signs Temperature 98.1 F 11/28/18 06:34 Pulse Rate 80 11/28/18 06:34 Respiratory Rate 18 11/28/18 06:34 Blood Pressure 145/85 11/28/18 06:34 O2 Sat by Pulse Oximetry (%) 94 L 11/27/18 21:00 Constitutional: Yes: No Distress Cardiovascular: Yes: Regular Rate and Rhythm Respiratory: Yes: Regular Gastrointestinal: Yes: Normal Bowel Sounds, Soft, Abdomen, Obese Edema: LLE: 2+, RLE: 2+ Wound/Incision: Yes: Other (Dressing intact) Neurological: Yes: Alert Labs: CBC, BMP 11/27/18 05:20 11/27/18 05:20 Problem List - Problems (1) Cellulitis Code(s): L03.90 - CELLULITIS, UNSPECIFIED (2) 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 Code(s): I87.333 - CHRONIC VENOUS HTN W ULCER AND INFLAM OF BILATERAL LOW EXTRM ; L97.919 - NON-PRS CHRONIC ULC UNSP PRT OF R LOW LEG W UNSP SEVERITY; L97.929 - NON-PRS CHRONIC ULC UNSP PRT OF L LOW LEG W UNSP SEVERITY Assessment/Plan Infected LE ulcers/cellulitis DM Colon CA s/p resection/chemo hypothyroidism BP disorder COPD -- Blood culture results noted: Coag neg Staph (likely contaminant) -- continue current antibiotics -- repeat blood cultures -- continue wound care, elevate legs Pt afebrile
[2018-11-28 13:06] VITALS: BMI 50.4
[2018-11-29] MEDS ORDERED: PT OWN MED DRAWER 7, Y5N ONE ×5 (01:11→09:03)
[2018-11-29] MEDS: MEROPENEM 1 GM in DEXTROSE 5%-WATER 100 ML IVPB SCH ×3 (01:12→17:09)
[2018-11-29] MEDS: oxyCODONE HCL 5 MG TABLET PO PRN ×4 (01:57→22:38)
[2018-11-29] MEDS: ACETAMINOPHEN 325 MG TABLET (FP) PO PRN ×4 (01:58→22:38)
[2018-11-29] MEDS: LINEZOLID 600 MG PREMIX BAG 600 MG/300 ML BAG IVPB SCH ×2 (06:25→17:37)
[2018-11-29] MEDS: INSULIN SLIDING SCALE (NOVOLOG) 1 VIAL SQ SCH ×4 (06:26→22:14)
[2018-11-29] MEDS: LEVOTHYROXINE NA 100 MCG TABLET (FP) PO SCH (06:26)
[2018-11-29] MEDS: ASPIRIN 81 MG CHEWABLE TABLETS PO SCH (09:12)
[2018-11-29] MEDS: GLIMEPIRIDE 2 MG TABLET (FP) PO SCH (09:12)
[2018-11-29] MEDS: HEPARIN NA (PORCINE) 5,000 UNITS/ML 1ML VIAL SQ SCH ×2 (09:12→22:14)
[2018-11-29] MEDS: PANTOPRAZOLE 20 MG TABLET (FP) PO SCH (09:12)
[2018-11-29] MEDS: LISINOPRIL 20 MG TABLET (FP) PO SCH (09:12)
[2018-11-29] MEDS: FUROSEMIDE 40 MG TABLET (FP) PO SCH (09:12)
[2018-11-29] MEDS: amLODIPine BESYLATE 5 MG TABLET (FP) PO SCH (09:12)
[2018-11-29] MEDS: BUDESONIDE/FORMETEROL FUMARATE 160/4.5 mcg INHALER IH SCH ×2 (09:13→22:15)
--- NOTE | 2018-11-29 13:35 | PN ---
Progress Note, Physician History of Present Illness: patient stable wound dressing removed wounds look good - Current Medication List Current Medications: Active Medications Acetaminophen (Tylenol -) 650 mg PO Q6H PRN PRN Reason: FEVER Last Admin: 11/29/18 09:30 Dose: 650 mg Amlodipine Besylate (Norvasc -) 5 mg PO DAILY [facility] Last Admin: 11/29/18 09:12 Dose: 5 mg Aspirin (Asa -) 81 mg PO DAILY [facility] Last Admin: 11/29/18 09:12 Dose: 81 mg Budesonide/Formoterol Fumarate (Symbicort 160/4.5mcg -) 2 puff IH BID [facility] Last Admin: 11/29/18 09:13 Dose: 2 puff Docusate Sodium (Colace -) 100 mg PO Q12H PRN PRN Reason: CONSTIPATION Furosemide (Lasix -) 40 mg PO DAILY [facility] Last Admin: 11/29/18 09:12 Dose: 40 mg Glimepiride (Amaryl -) 2 mg PO DAILY@0700 [facility] Last Admin: 11/29/18 09:12 Dose: 2 mg Heparin Sodium (Porcine) (Heparin -) 5,000 unit SQ BID [facility] Last Admin: 11/29/18 09:12 Dose: 5,000 unit Linezolid (Zyvox 600 Mg Premix Bag (Restricted To Id) -) 600 mg in 300 mls @ 300 mls/hr IVPB BID@0600,1800 [facility]; Protocol Last Admin: 11/29/18 06:25 Dose: 300 mls/hr Meropenem 1 gm/ Dextrose 100 mls @ 200 mls/hr IVPB Q8H-IV [facility] Last Admin: 11/29/18 09:12 Dose: 200 mls/hr Insulin Aspart (Novolog Vial Sliding Scale -) 1 vial SQ ACHS [facility]; Protocol Last Admin: 11/29/18 12:14 Dose: Not Given Levothyroxine Sodium (Synthroid -) 100 mcg PO DAILY@0700 [facility] Last Admin: 11/29/18 06:26 Dose: 100 mcg Lisinopril (Prinivil) 20 mg PO DAILY [facility] Last Admin: 11/29/18 09:12 Dose: 20 mg Oxycodone HCl (Roxicodone -) 10 mg PO Q6H PRN PRN Reason: PAIN LEVEL 4 - 6 Last Admin: 11/29/18 09:31 Dose: 10 mg Pantoprazole Sodium (Protonix -) 20 mg PO DAILY [facility] Last Admin: 11/29/18 09:12 Dose: 20 mg - Objective Vital Signs: Vital Signs Temperature 98.0 F 11/29/18 06:00 Pulse Rate 76 11/29/18 06:00 Respiratory Rate 20 11/29/18 06:00 Blood Pressure 151/95 11/29/18 06:00 O2 Sat by Pulse Oximetry (%) 94 L 11/28/18 20:50 Constitutional: Yes: No Distress, Calm, Obese Cardiovascular: Yes: Regular Rate and Rhythm Respiratory: Yes: Regular, CTA Bilaterally Gastrointestinal: Yes: Normal Bowel Sounds, Soft Musculoskeletal: Yes: WNL Extremities: Yes: Other Integumentary: Yes: Erythema Wound/Incision: Yes: Dressing Dry and Intact Psychiatric: Yes: Alert, Oriented Labs: CBC, BMP 11/27/18 05:20 11/27/18 05:20 Assessment/Plan Problem List - Problems (1) Cellulitis Code(s): L03.90 - CELLULITIS, UNSPECIFIED (2) 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
--- NOTE | 2018-11-29 19:09 | PN ---
Progress Note, Physician History of Present Illness: doing well - Current Medication List Current Medications: Active Medications Acetaminophen (Tylenol -) 650 mg PO Q6H PRN PRN Reason: FEVER Last Admin: 11/29/18 16:49 Dose: 650 mg Amlodipine Besylate (Norvasc -) 5 mg PO DAILY [facility] Last Admin: 11/29/18 09:12 Dose: 5 mg Aspirin (Asa -) 81 mg PO DAILY [facility] Last Admin: 11/29/18 09:12 Dose: 81 mg Budesonide/Formoterol Fumarate (Symbicort 160/4.5mcg -) 2 puff IH BID [facility] Last Admin: 11/29/18 09:13 Dose: 2 puff Docusate Sodium (Colace -) 100 mg PO Q12H PRN PRN Reason: CONSTIPATION Furosemide (Lasix -) 40 mg PO DAILY [facility] Last Admin: 11/29/18 09:12 Dose: 40 mg Glimepiride (Amaryl -) 2 mg PO DAILY@0700 [facility] Last Admin: 11/29/18 09:12 Dose: 2 mg Heparin Sodium (Porcine) (Heparin -) 5,000 unit SQ BID [facility] Last Admin: 11/29/18 09:12 Dose: 5,000 unit Linezolid (Zyvox 600 Mg Premix Bag (Restricted To Id) -) 600 mg in 300 mls @ 300 mls/hr IVPB BID@0600,1800 [facility]; Protocol Last Admin: 11/29/18 17:37 Dose: 300 mls/hr Meropenem 1 gm/ Dextrose 100 mls @ 200 mls/hr IVPB Q8H-IV [facility] Last Admin: 11/29/18 17:09 Dose: 200 mls/hr Insulin Aspart (Novolog Vial Sliding Scale -) 1 vial SQ ACHS [facility]; Protocol Last Admin: 11/29/18 16:46 Dose: Not Given Levothyroxine Sodium (Synthroid -) 100 mcg PO DAILY@0700 [facility] Last Admin: 11/29/18 06:26 Dose: 100 mcg Lisinopril (Prinivil) 20 mg PO DAILY [facility] Last Admin: 11/29/18 09:12 Dose: 20 mg Pantoprazole Sodium (Protonix -) 20 mg PO DAILY [facility] Last Admin: 11/29/18 09:12 Dose: 20 mg - Objective Vital Signs: Vital Signs Temperature 98.0 F 11/29/18 10:00 Pulse Rate 76 11/29/18 10:00 Respiratory Rate 20 11/29/18 10:00 Blood Pressure 132/74 11/29/18 10:00 O2 Sat by Pulse Oximetry (%) 94 L 11/29/18 10:00 Constitutional: Yes: No Distress HENT: Yes: Atraumatic Neck: Yes: Supple Cardiovascular: Yes: Regular Rate and Rhythm Respiratory: Yes: CTA Bilaterally Gastrointestinal: Yes: Normal Bowel Sounds Extremities: Yes: Other (b/l teresa cellulitis) Edema: Yes Edema: LLE: 2+, RLE: 2+ Neurological: Yes: Alert, Oriented Labs: CBC, BMP 11/27/18 05:20 11/27/18 05:20 Problem List - Problems (1) Cellulitis Assessment/Plan: on iv abx wound care dressing change Code(s): L03.90 - CELLULITIS, UNSPECIFIED (2) 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
[2018-11-30] MEDS ORDERED: PT OWN MED DRAWER 7, Y5N ONE ×4 (00:51→22:03)
[2018-11-30] MEDS: MEROPENEM 1 GM in DEXTROSE 5%-WATER 100 ML IVPB SCH ×3 (01:03→17:17)
[2018-11-30] MEDS: ACETAMINOPHEN 325 MG TABLET (FP) PO PRN ×2 (05:42→17:18)
[2018-11-30] MEDS: oxyCODONE HCL 5 MG TABLET PO PRN ×2 (05:42→17:17)
[2018-11-30] MEDS: INSULIN SLIDING SCALE (NOVOLOG) 1 VIAL SQ SCH ×5 (06:01→22:27)
[2018-11-30] MEDS: LEVOTHYROXINE NA 100 MCG TABLET (FP) PO SCH (06:02)
[2018-11-30] MEDS: LINEZOLID 600 MG PREMIX BAG 600 MG/300 ML BAG IVPB SCH ×2 (06:03→17:19)
[2018-11-30] MEDS: GLIMEPIRIDE 2 MG TABLET (FP) PO SCH (06:38)
[2018-11-30] MEDS: HEPARIN NA (PORCINE) 5,000 UNITS/ML 1ML VIAL SQ SCH ×2 (09:41→22:25)
[2018-11-30] MEDS: PANTOPRAZOLE 20 MG TABLET (FP) PO SCH (09:41)
[2018-11-30] MEDS: amLODIPine BESYLATE 5 MG TABLET (FP) PO SCH (09:42)
[2018-11-30] MEDS: BUDESONIDE/FORMETEROL FUMARATE 160/4.5 mcg INHALER IH SCH ×2 (09:42→22:28)
[2018-11-30] MEDS: ASPIRIN 81 MG CHEWABLE TABLETS PO SCH (09:42)
[2018-11-30] MEDS: FUROSEMIDE 40 MG TABLET (FP) PO SCH (09:42)
[2018-11-30] MEDS: LISINOPRIL 20 MG TABLET (FP) PO SCH (09:42)
--- NOTE | 2018-11-30 16:19 | PN ---
Progress Note, Physician History of Present Illness: doing well - Current Medication List Current Medications: Active Medications Acetaminophen (Tylenol -) 650 mg PO Q6H PRN PRN Reason: FEVER Last Admin: 11/30/18 05:42 Dose: 650 mg Amlodipine Besylate (Norvasc -) 5 mg PO DAILY [facility] Last Admin: 11/30/18 09:42 Dose: 5 mg Aspirin (Asa -) 81 mg PO DAILY [facility] Last Admin: 11/30/18 09:42 Dose: 81 mg Budesonide/Formoterol Fumarate (Symbicort 160/4.5mcg -) 2 puff IH BID [facility] Last Admin: 11/30/18 09:42 Dose: 2 puff Docusate Sodium (Colace -) 100 mg PO Q12H PRN PRN Reason: CONSTIPATION Furosemide (Lasix -) 40 mg PO DAILY [facility] Last Admin: 11/30/18 09:42 Dose: 40 mg Glimepiride (Amaryl -) 2 mg PO DAILY@0700 [facility] Last Admin: 11/30/18 06:38 Dose: 2 mg Heparin Sodium (Porcine) (Heparin -) 5,000 unit SQ BID [facility] Last Admin: 11/30/18 09:41 Dose: 5,000 unit Linezolid (Zyvox 600 Mg Premix Bag (Restricted To Id) -) 600 mg in 300 mls @ 300 mls/hr IVPB BID@0600,1800 [facility]; Protocol Last Admin: 11/30/18 06:03 Dose: 300 mls/hr Meropenem 1 gm/ Dextrose 100 mls @ 200 mls/hr IVPB Q8H-IV [facility] Last Admin: 11/30/18 09:39 Dose: 200 mls/hr Insulin Aspart (Novolog Vial Sliding Scale -) 1 vial SQ ACHS [facility]; Protocol Last Admin: 11/30/18 11:51 Dose: Not Given Levothyroxine Sodium (Synthroid -) 100 mcg PO DAILY@0700 [facility] Last Admin: 11/30/18 06:02 Dose: 100 mcg Lisinopril (Prinivil) 20 mg PO DAILY [facility] Last Admin: 11/30/18 09:42 Dose: 20 mg Oxycodone HCl (Roxicodone -) 10 mg PO Q6H PRN PRN Reason: PAIN SCALE 4-6 Last Admin: 11/30/18 05:42 Dose: 10 mg Pantoprazole Sodium (Protonix -) 20 mg PO DAILY [facility] Last Admin: 11/30/18 09:41 Dose: 20 mg - Objective Vital Signs: Vital Signs Temperature 97.7 F 11/30/18 09:52 Pulse Rate 78 11/30/18 09:52 Respiratory Rate 11/30/18 09:52 Blood Pressure 131/60 11/30/18 09:52 O2 Sat by Pulse Oximetry (%) 93 L 11/30/18 09:00 Constitutional: Yes: No Distress HENT: Yes: Atraumatic Neck: Yes: Supple Cardiovascular: Yes: Regular Rate and Rhythm Respiratory: Yes: CTA Bilaterally Gastrointestinal: Yes: Normal Bowel Sounds Extremities: Yes: Other (cellulitis b/l teresa) Edema: Yes Edema: LLE: 2+, RLE: 2+ Neurological: Yes: Alert, Oriented Labs: CBC, BMP 11/27/18 05:20 11/27/18 05:20 Problem List - Problems (1) Cellulitis Assessment/Plan: on iv abx wound care dressing change Code(s): L03.90 - CELLULITIS, UNSPECIFIED (2) 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
[2018-12-01] MEDS ORDERED: PT OWN MED DRAWER 7, Y5N ONE ×5 (01:16→17:05)
[2018-12-01] MEDS: MEROPENEM 1 GM in DEXTROSE 5%-WATER 100 ML IVPB SCH ×3 (01:22→17:22)
[2018-12-01] MEDS: oxyCODONE HCL 5 MG TABLET PO PRN ×3 (01:48→17:39)
[2018-12-01] MEDS: INSULIN SLIDING SCALE (NOVOLOG) 1 VIAL SQ SCH ×4 (06:24→22:28)
[2018-12-01] MEDS: LINEZOLID 600 MG PREMIX BAG 600 MG/300 ML BAG IVPB SCH ×2 (06:24→19:28)
[2018-12-01] MEDS: GLIMEPIRIDE 2 MG TABLET (FP) PO SCH (06:24)
[2018-12-01] MEDS: LEVOTHYROXINE NA 100 MCG TABLET (FP) PO SCH (06:25)
[2018-12-01] MEDS: ASPIRIN 81 MG CHEWABLE TABLETS PO SCH (10:48)
[2018-12-01] MEDS: PANTOPRAZOLE 20 MG TABLET (FP) PO SCH (10:48)
[2018-12-01] MEDS: LISINOPRIL 20 MG TABLET (FP) PO SCH (10:48)
[2018-12-01] MEDS: amLODIPine BESYLATE 5 MG TABLET (FP) PO SCH (10:48)
[2018-12-01] MEDS: FUROSEMIDE 40 MG TABLET (FP) PO SCH (10:48)
[2018-12-01] MEDS: BUDESONIDE/FORMETEROL FUMARATE 160/4.5 mcg INHALER IH SCH ×2 (10:49→22:30)
[2018-12-01] MEDS: HEPARIN NA (PORCINE) 5,000 UNITS/ML 1ML VIAL SQ SCH ×2 (10:49→22:28)
[2018-12-01] MEDS: ACETAMINOPHEN 325 MG TABLET (FP) PO PRN ×2 (10:58→17:42)
--- NOTE | 2018-12-01 13:39 | PN ---
Progress Note, Physician History of Present Illness: doing well - Current Medication List Current Medications: Active Medications Acetaminophen (Tylenol -) 650 mg PO Q6H PRN PRN Reason: FEVER Last Admin: 12/01/18 10:58 Dose: 650 mg Amlodipine Besylate (Norvasc -) 5 mg PO DAILY [facility] Last Admin: 12/01/18 10:48 Dose: 5 mg Aspirin (Asa -) 81 mg PO DAILY [facility] Last Admin: 12/01/18 10:48 Dose: 81 mg Budesonide/Formoterol Fumarate (Symbicort 160/4.5mcg -) 2 puff IH BID [facility] Last Admin: 12/01/18 10:49 Dose: Not Given Docusate Sodium (Colace -) 100 mg PO Q12H PRN PRN Reason: CONSTIPATION Furosemide (Lasix -) 40 mg PO DAILY [facility] Last Admin: 12/01/18 10:48 Dose: 40 mg Glimepiride (Amaryl -) 2 mg PO DAILY@0700 [facility] Last Admin: 12/01/18 06:24 Dose: 2 mg Heparin Sodium (Porcine) (Heparin -) 5,000 unit SQ BID [facility] Last Admin: 12/01/18 10:49 Dose: 5,000 unit Linezolid (Zyvox 600 Mg Premix Bag (Restricted To Id) -) 600 mg in 300 mls @ 300 mls/hr IVPB BID@0600,1800 [facility]; Protocol Last Admin: 12/01/18 06:24 Dose: 300 mls/hr Meropenem 1 gm/ Dextrose 100 mls @ 200 mls/hr IVPB Q8H-IV [facility] Last Admin: 12/01/18 10:49 Dose: 200 mls/hr Insulin Aspart (Novolog Vial Sliding Scale -) 1 vial SQ ACHS [facility]; Protocol Last Admin: 12/01/18 12:06 Dose: Not Given Levothyroxine Sodium (Synthroid -) 100 mcg PO DAILY@0700 [facility] Last Admin: 12/01/18 06:25 Dose: 100 mcg Lisinopril (Prinivil) 20 mg PO DAILY [facility] Last Admin: 12/01/18 10:48 Dose: 20 mg Oxycodone HCl (Roxicodone -) 10 mg PO Q6H PRN PRN Reason: PAIN SCALE 4-6 Last Admin: 12/01/18 10:57 Dose: 10 mg Pantoprazole Sodium (Protonix -) 20 mg PO DAILY [facility] Last Admin: 12/01/18 10:48 Dose: 20 mg - Objective Vital Signs: Vital Signs Temperature 97.4 F L 12/01/18 06:00 Pulse Rate 72 12/01/18 06:00 Respiratory Rate 18 12/01/18 06:00 Blood Pressure 124/60 12/01/18 06:00 O2 Sat by Pulse Oximetry (%) 93 L 11/30/18 21:00 Constitutional: Yes: No Distress HENT: Yes: Atraumatic Neck: Yes: Supple Cardiovascular: Yes: Regular Rate and Rhythm Respiratory: Yes: CTA Bilaterally Gastrointestinal: Yes: Normal Bowel Sounds Extremities: Yes: Other (b/l teresa cellulitis) Edema: No Neurological: Yes: Alert, Oriented Labs: CBC, BMP 11/27/18 05:20 11/27/18 05:20 Problem List - Problems (1) Cellulitis Assessment/Plan: on iv abx wound care dressing change Code(s): L03.90 - CELLULITIS, UNSPECIFIED (2) 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
--- NOTE | 2018-12-01 15:01 | PN ---
Progress Note, Physician History of Present Illness: stable doing well wound healing better - Current Medication List Current Medications: Active Medications Acetaminophen (Tylenol -) 650 mg PO Q6H PRN PRN Reason: FEVER Last Admin: 12/01/18 10:58 Dose: 650 mg Amlodipine Besylate (Norvasc -) 5 mg PO DAILY [facility] Last Admin: 12/01/18 10:48 Dose: 5 mg Aspirin (Asa -) 81 mg PO DAILY [facility] Last Admin: 12/01/18 10:48 Dose: 81 mg Budesonide/Formoterol Fumarate (Symbicort 160/4.5mcg -) 2 puff IH BID [facility] Last Admin: 12/01/18 10:49 Dose: Not Given Docusate Sodium (Colace -) 100 mg PO Q12H PRN PRN Reason: CONSTIPATION Furosemide (Lasix -) 40 mg PO DAILY [facility] Last Admin: 12/01/18 10:48 Dose: 40 mg Glimepiride (Amaryl -) 2 mg PO DAILY@0700 [facility] Last Admin: 12/01/18 06:24 Dose: 2 mg Heparin Sodium (Porcine) (Heparin -) 5,000 unit SQ BID [facility] Last Admin: 12/01/18 10:49 Dose: 5,000 unit Linezolid (Zyvox 600 Mg Premix Bag (Restricted To Id) -) 600 mg in 300 mls @ 300 mls/hr IVPB BID@0600,1800 [facility]; Protocol Last Admin: 12/01/18 06:24 Dose: 300 mls/hr Meropenem 1 gm/ Dextrose 100 mls @ 200 mls/hr IVPB Q8H-IV [facility] Last Admin: 12/01/18 10:49 Dose: 200 mls/hr Insulin Aspart (Novolog Vial Sliding Scale -) 1 vial SQ ACHS [facility]; Protocol Last Admin: 12/01/18 12:06 Dose: Not Given Levothyroxine Sodium (Synthroid -) 100 mcg PO DAILY@0700 [facility] Last Admin: 12/01/18 06:25 Dose: 100 mcg Lisinopril (Prinivil) 20 mg PO DAILY [facility] Last Admin: 12/01/18 10:48 Dose: 20 mg Oxycodone HCl (Roxicodone -) 10 mg PO Q6H PRN PRN Reason: PAIN SCALE 4-6 Last Admin: 12/01/18 10:57 Dose: 10 mg Pantoprazole Sodium (Protonix -) 20 mg PO DAILY [facility] Last Admin: 12/01/18 10:48 Dose: 20 mg - Objective Vital Signs: Vital Signs Temperature 98.7 F 12/01/18 13:49 Pulse Rate 82 12/01/18 13:49 Respiratory Rate 18 12/01/18 13:49 Blood Pressure 109/56 L 12/01/18 13:49 O2 Sat by Pulse Oximetry (%) 93 L 11/30/18 21:00 Constitutional: Yes: No Distress, Calm Cardiovascular: Yes: Regular Rate and Rhythm Respiratory: Yes: Regular, CTA Bilaterally Gastrointestinal: Yes: Normal Bowel Sounds, Soft Musculoskeletal: Yes: Other Extremities: Yes: Erythema (improved) Wound/Incision: Yes: Dressing Dry and Intact, Dressing Removed Neurological: Yes: Alert, Oriented Psychiatric: Yes: Alert, Oriented Labs: CBC, BMP 11/27/18 05:20 11/27/18 05:20 Assessment/Plan Problem List - Problems (1) Cellulitis Code(s): L03.90 - CELLULITIS, UNSPECIFIED (2) 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
[2018-12-01] MEDS ORDERED: MAG HYDROX/AL HYDROX/SIMETH 30 ML UNIT-DOSE CUP PO ONE (16:30)
[2018-12-01] MEDS: SIMETHICONE 80 MG TAB.CHEW (FP) PO PRN (23:05)
[2018-12-02] MEDS ORDERED: PT OWN MED DRAWER 7, Y5N ONE ×4 (02:10→17:22)
[2018-12-02] MEDS: MEROPENEM 1 GM in DEXTROSE 5%-WATER 100 ML IVPB SCH ×3 (02:12→17:37)
[2018-12-02] MEDS: oxyCODONE HCL 5 MG TABLET PO PRN ×2 (02:46→23:01)
[2018-12-02] MEDS: DOCUSATE SODIUM 100 MG CAPSULE (FP) PO PRN ×3 (02:47→22:31)
[2018-12-02] MEDS: ACETAMINOPHEN 325 MG TABLET (FP) PO PRN ×2 (02:47→23:00)
[2018-12-02] MEDS: GLIMEPIRIDE 2 MG TABLET (FP) PO SCH (06:12)
[2018-12-02] MEDS: INSULIN SLIDING SCALE (NOVOLOG) 1 VIAL SQ SCH ×4 (06:12→22:31)
[2018-12-02] MEDS: LEVOTHYROXINE NA 100 MCG TABLET (FP) PO SCH (06:12)
[2018-12-02] MEDS: LINEZOLID 600 MG PREMIX BAG 600 MG/300 ML BAG IVPB SCH ×2 (06:12→17:37)
[2018-12-02] MEDS: SIMETHICONE 80 MG TAB.CHEW (FP) PO PRN ×2 (09:21→22:31)
[2018-12-02] MEDS: PANTOPRAZOLE 20 MG TABLET (FP) PO SCH (09:21)
[2018-12-02] MEDS: ASPIRIN 81 MG CHEWABLE TABLETS PO SCH (11:27)
[2018-12-02] MEDS: HEPARIN NA (PORCINE) 5,000 UNITS/ML 1ML VIAL SQ SCH ×2 (11:28→22:31)
[2018-12-02] MEDS: FUROSEMIDE 40 MG TABLET (FP) PO SCH (11:28)
[2018-12-02] MEDS: amLODIPine BESYLATE 5 MG TABLET (FP) PO SCH (11:29)
[2018-12-02] MEDS: LISINOPRIL 20 MG TABLET (FP) PO SCH (11:29)
[2018-12-02] MEDS: BUDESONIDE/FORMETEROL FUMARATE 160/4.5 mcg INHALER IH SCH ×2 (11:31→22:30)
--- NOTE | 2018-12-02 15:46 | PN ---
Progress Note, Physician History of Present Illness: stable doing well wound healing better - Current Medication List Current Medications: Active Medications Acetaminophen (Tylenol -) 650 mg PO Q6H PRN PRN Reason: FEVER Last Admin: 12/02/18 02:47 Dose: 650 mg Amlodipine Besylate (Norvasc -) 5 mg PO DAILY [facility] Last Admin: 12/02/18 11:29 Dose: 5 mg Aspirin (Asa -) 81 mg PO DAILY [facility] Last Admin: 12/02/18 11:27 Dose: 81 mg Budesonide/Formoterol Fumarate (Symbicort 160/4.5mcg -) 2 puff IH BID [facility] Last Admin: 12/02/18 11:31 Dose: 2 puff Docusate Sodium (Colace -) 100 mg PO Q12H PRN PRN Reason: CONSTIPATION Last Admin: 12/02/18 12:13 Dose: 100 mg Furosemide (Lasix -) 40 mg PO DAILY [facility] Last Admin: 12/02/18 11:28 Dose: 40 mg Glimepiride (Amaryl -) 2 mg PO DAILY@0700 [facility] Last Admin: 12/02/18 06:12 Dose: 2 mg Heparin Sodium (Porcine) (Heparin -) 5,000 unit SQ BID [facility] Last Admin: 12/02/18 11:28 Dose: 5,000 unit Linezolid (Zyvox 600 Mg Premix Bag (Restricted To Id) -) 600 mg in 300 mls @ 300 mls/hr IVPB BID@0600,1800 [facility]; Protocol Last Admin: 12/02/18 06:12 Dose: 300 mls/hr Meropenem 1 gm/ Dextrose 100 mls @ 200 mls/hr IVPB Q8H-IV [facility] Last Admin: 12/02/18 10:29 Dose: 200 mls/hr Insulin Aspart (Novolog Vial Sliding Scale -) 1 vial SQ ACHS [facility]; Protocol Last Admin: 12/02/18 11:44 Dose: Not Given Levothyroxine Sodium (Synthroid -) 100 mcg PO DAILY@0700 [facility] Last Admin: 12/02/18 06:12 Dose: 100 mcg Lisinopril (Prinivil) 20 mg PO DAILY [facility] Last Admin: 12/02/18 11:29 Dose: 20 mg Oxycodone HCl (Roxicodone -) 10 mg PO Q6H PRN PRN Reason: PAIN SCALE 4-6 Last Admin: 12/02/18 02:46 Dose: 10 mg Pantoprazole Sodium (Protonix -) 20 mg PO DAILY [facility] Last Admin: 12/02/18 09:21 Dose: 20 mg - Objective Vital Signs: Vital Signs Temperature 98.2 F 12/02/18 13:00 Pulse Rate 77 12/02/18 13:00 Respiratory Rate 18 12/02/18 13:00 Blood Pressure 113/65 12/02/18 13:00 O2 Sat by Pulse Oximetry (%) 91 L 12/02/18 09:00 Constitutional: Yes: No Distress, Calm, Obese Cardiovascular: Yes: Regular Rate and Rhythm Respiratory: Yes: Regular, CTA Bilaterally Gastrointestinal: Yes: Normal Bowel Sounds, Soft Musculoskeletal: Yes: Other Extremities: Yes: Erythema Neurological: Yes: Alert, Oriented Psychiatric: Yes: Alert, Oriented Labs: CBC, BMP 11/27/18 05:20 11/27/18 05:20 Assessment/Plan Problem List - Problems (1) Cellulitis Code(s): L03.90 - CELLULITIS, UNSPECIFIED (2) 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
--- NOTE | 2018-12-02 18:49 | PN ---
Progress Note, Physician History of Present Illness: doing well - Current Medication List Current Medications: Active Medications Acetaminophen (Tylenol -) 650 mg PO Q6H PRN PRN Reason: FEVER Last Admin: 12/02/18 02:47 Dose: 650 mg Al Hydroxide/Mg Hydroxide (Mylanta Oral Suspension -) 30 ml PO Q6H PRN PRN Reason: DYSPEPSIA Amlodipine Besylate (Norvasc -) 5 mg PO DAILY [facility] Last Admin: 12/02/18 11:29 Dose: 5 mg Aspirin (Asa -) 81 mg PO DAILY [facility] Last Admin: 12/02/18 11:27 Dose: 81 mg Budesonide/Formoterol Fumarate (Symbicort 160/4.5mcg -) 2 puff IH BID [facility] Last Admin: 12/02/18 11:31 Dose: 2 puff Docusate Sodium (Colace -) 100 mg PO Q12H PRN PRN Reason: CONSTIPATION Last Admin: 12/02/18 12:13 Dose: 100 mg Furosemide (Lasix -) 40 mg PO DAILY [facility] Last Admin: 12/02/18 11:28 Dose: 40 mg Glimepiride (Amaryl -) 2 mg PO DAILY@0700 [facility] Last Admin: 12/02/18 06:12 Dose: 2 mg Heparin Sodium (Porcine) (Heparin -) 5,000 unit SQ BID [facility] Last Admin: 12/02/18 11:28 Dose: 5,000 unit Linezolid (Zyvox 600 Mg Premix Bag (Restricted To Id) -) 600 mg in 300 mls @ 300 mls/hr IVPB BID@0600,1800 [facility]; Protocol Last Admin: 12/02/18 17:37 Dose: 300 mls/hr Meropenem 1 gm/ Dextrose 100 mls @ 200 mls/hr IVPB Q8H-IV [facility] Last Admin: 12/02/18 17:37 Dose: 200 mls/hr Insulin Aspart (Novolog Vial Sliding Scale -) 1 vial SQ ACHS [facility]; Protocol Last Admin: 12/02/18 17:18 Dose: Not Given Levothyroxine Sodium (Synthroid -) 100 mcg PO DAILY@0700 [facility] Last Admin: 12/02/18 06:12 Dose: 100 mcg Lisinopril (Prinivil) 20 mg PO DAILY [facility] Last Admin: 12/02/18 11:29 Dose: 20 mg Oxycodone HCl (Roxicodone -) 10 mg PO Q6H PRN PRN Reason: PAIN SCALE 4-6 Last Admin: 12/02/18 02:46 Dose: 10 mg Pantoprazole Sodium (Protonix -) 20 mg PO DAILY [facility] Last Admin: 12/02/18 09:21 Dose: 20 mg Simethicone (Mylicon -) 80 mg PO QID PRN PRN Reason: INDIGESTION - Objective Vital Signs: Vital Signs Temperature 98.2 F 12/02/18 13:00 Pulse Rate 77 12/02/18 13:00 Respiratory Rate 18 12/02/18 13:00 Blood Pressure 113/65 12/02/18 13:00 O2 Sat by Pulse Oximetry (%) 91 L 12/02/18 09:00 Constitutional: Yes: No Distress HENT: Yes: Atraumatic Neck: Yes: Supple Cardiovascular: Yes: Regular Rate and Rhythm Respiratory: Yes: CTA Bilaterally Gastrointestinal: Yes: Normal Bowel Sounds, Other (colostomy bag in place) Extremities: Yes: Other (cellulitis b/l teresa) Edema: Yes Edema: LLE: 2+, RLE: 2+ Neurological: Yes: Alert, Oriented Labs: CBC, BMP 11/27/18 05:20 11/27/18 05:20 Problem List - Problems (1) Cellulitis Assessment/Plan: on iv abx wound care dressing change Code(s): L03.90 - CELLULITIS, UNSPECIFIED (2) 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
[2018-12-02] MEDS: MAG HYDROX/AL HYDROX/SIMETH 30 ML UNIT-DOSE CUP PO PRN (22:31)
[2018-12-03] MEDS ORDERED: PT OWN MED DRAWER 7, Y5N ONE ×3 (00:58→16:54)
[2018-12-03] MEDS: MEROPENEM 1 GM in DEXTROSE 5%-WATER 100 ML IVPB SCH ×3 (01:10→17:20)
[2018-12-03] MEDS: LINEZOLID 600 MG PREMIX BAG 600 MG/300 ML BAG IVPB SCH ×2 (06:29→18:12)
[2018-12-03] MEDS: LEVOTHYROXINE NA 100 MCG TABLET (FP) PO SCH (06:29)
[2018-12-03] MEDS: INSULIN SLIDING SCALE (NOVOLOG) 1 VIAL SQ SCH ×4 (06:29→23:08)
[2018-12-03] MEDS: GLIMEPIRIDE 2 MG TABLET (FP) PO SCH (08:25)
[2018-12-03] MEDS: LISINOPRIL 20 MG TABLET (FP) PO SCH (10:00)
[2018-12-03] MEDS: HEPARIN NA (PORCINE) 5,000 UNITS/ML 1ML VIAL SQ SCH (10:00)
[2018-12-03] MEDS: PANTOPRAZOLE 20 MG TABLET (FP) PO SCH (10:00)
[2018-12-03] MEDS: amLODIPine BESYLATE 5 MG TABLET (FP) PO SCH (10:00)
[2018-12-03] MEDS: ASPIRIN 81 MG CHEWABLE TABLETS PO SCH (10:00)
[2018-12-03] MEDS: FUROSEMIDE 40 MG TABLET (FP) PO SCH (10:00)
[2018-12-03] MEDS: BUDESONIDE/FORMETEROL FUMARATE 160/4.5 mcg INHALER IH SCH ×2 (10:01→23:07)
[2018-12-03] MEDS: MAG HYDROX/AL HYDROX/SIMETH 30 ML UNIT-DOSE CUP PO PRN ×2 (10:22→22:57)
[2018-12-03] MEDS: oxyCODONE HCL 5 MG TABLET PO PRN ×2 (10:22→22:58)
[2018-12-03] MEDS: SIMETHICONE 80 MG TAB.CHEW (FP) PO PRN (12:01)
[2018-12-03] MEDS: DOCUSATE SODIUM 100 MG CAPSULE (FP) PO PRN (12:01)
--- NOTE | 2018-12-03 14:30 | PN ---
Progress Note, Physician History of Present Illness: feels much better wounds looking better - Current Medication List Current Medications: Active Medications Acetaminophen (Tylenol -) 650 mg PO Q6H PRN PRN Reason: FEVER Last Admin: 12/02/18 23:00 Dose: 650 mg Al Hydroxide/Mg Hydroxide (Mylanta Oral Suspension -) 30 ml PO Q6H PRN PRN Reason: DYSPEPSIA Last Admin: 12/03/18 10:22 Dose: 30 ml Amlodipine Besylate (Norvasc -) 5 mg PO DAILY [facility] Last Admin: 12/03/18 10:00 Dose: 5 mg Aspirin (Asa -) 81 mg PO DAILY [facility] Last Admin: 12/03/18 10:00 Dose: 81 mg Budesonide/Formoterol Fumarate (Symbicort 160/4.5mcg -) 2 puff IH BID [facility] Last Admin: 12/03/18 10:01 Dose: 2 puff Docusate Sodium (Colace -) 100 mg PO Q12H PRN PRN Reason: CONSTIPATION Last Admin: 12/03/18 12:01 Dose: 100 mg Furosemide (Lasix -) 40 mg PO DAILY [facility] Last Admin: 12/03/18 10:00 Dose: 40 mg Glimepiride (Amaryl -) 2 mg PO DAILY@0700 [facility] Last Admin: 12/03/18 08:25 Dose: 2 mg Heparin Sodium (Porcine) (Heparin -) 5,000 unit SQ BID [facility] Last Admin: 12/03/18 10:00 Dose: 5,000 unit Linezolid (Zyvox 600 Mg Premix Bag (Restricted To Id) -) 600 mg in 300 mls @ 300 mls/hr IVPB BID@0600,1800 [facility]; Protocol Last Admin: 12/03/18 06:29 Dose: 300 mls/hr Meropenem 1 gm/ Dextrose 100 mls @ 200 mls/hr IVPB Q8H-IV [facility] Last Admin: 12/03/18 09:46 Dose: 200 mls/hr Insulin Aspart (Novolog Vial Sliding Scale -) 1 vial SQ ACHS [facility]; Protocol Last Admin: 12/03/18 11:54 Dose: Not Given Levothyroxine Sodium (Synthroid -) 100 mcg PO DAILY@0700 [facility] Last Admin: 12/03/18 06:29 Dose: 100 mcg Lisinopril (Prinivil) 20 mg PO DAILY [facility] Last Admin: 12/03/18 10:00 Dose: 20 mg Oxycodone HCl (Roxicodone -) 10 mg PO Q6H PRN PRN Reason: PAIN SCALE 4-6 Last Admin: 12/03/18 10:22 Dose: 10 mg Pantoprazole Sodium (Protonix -) 20 mg PO DAILY [facility] Last Admin: 12/03/18 10:00 Dose: 20 mg Simethicone (Mylicon -) 80 mg PO Q6H PRN PRN Reason: INDIGESTION Last Admin: 12/03/18 12:01 Dose: 80 mg - Objective Vital Signs: Vital Signs Temperature 98 F 12/03/18 09:00 Pulse Rate 69 12/03/18 09:00 Respiratory Rate 18 12/03/18 09:00 Blood Pressure 137/60 12/03/18 09:00 O2 Sat by Pulse Oximetry (%) 92 L 12/03/18 09:00 Constitutional: Yes: No Distress, Calm Neck: Yes: Supple, Trachea Midline Cardiovascular: Yes: Regular Rate and Rhythm Respiratory: Yes: Regular, CTA Bilaterally Gastrointestinal: Yes: Normal Bowel Sounds, Soft Extremities: Yes: Other Wound/Incision: Yes: Dressing Dry and Intact, Dressing Removed Neurological: Yes: Alert, Oriented Psychiatric: Yes: Alert, Oriented Labs: CBC, BMP 11/27/18 05:20 11/27/18 05:20 Assessment/Plan Problem List - Problems (1) Cellulitis Code(s): L03.90 - CELLULITIS, UNSPECIFIED (2) 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
--- NOTE | 2018-12-03 17:33 | PN ---
Progress Note, Physician History of Present Illness: doing well - Current Medication List Current Medications: Active Medications Acetaminophen (Tylenol -) 650 mg PO Q6H PRN PRN Reason: FEVER Last Admin: 12/02/18 23:00 Dose: 650 mg Al Hydroxide/Mg Hydroxide (Mylanta Oral Suspension -) 30 ml PO Q6H PRN PRN Reason: DYSPEPSIA Last Admin: 12/03/18 10:22 Dose: 30 ml Amlodipine Besylate (Norvasc -) 5 mg PO DAILY [facility] Last Admin: 12/03/18 10:00 Dose: 5 mg Aspirin (Asa -) 81 mg PO DAILY [facility] Last Admin: 12/03/18 10:00 Dose: 81 mg Budesonide/Formoterol Fumarate (Symbicort 160/4.5mcg -) 2 puff IH BID [facility] Last Admin: 12/03/18 10:01 Dose: 2 puff Docusate Sodium (Colace -) 100 mg PO Q12H PRN PRN Reason: CONSTIPATION Last Admin: 12/03/18 12:01 Dose: 100 mg Furosemide (Lasix -) 40 mg PO DAILY [facility] Last Admin: 12/03/18 10:00 Dose: 40 mg Glimepiride (Amaryl -) 2 mg PO DAILY@0700 [facility] Last Admin: 12/03/18 08:25 Dose: 2 mg Heparin Sodium (Porcine) (Heparin -) 5,000 unit SQ BID [facility] Last Admin: 12/03/18 10:00 Dose: 5,000 unit Linezolid (Zyvox 600 Mg Premix Bag (Restricted To Id) -) 600 mg in 300 mls @ 300 mls/hr IVPB BID@0600,1800 [facility]; Protocol Last Admin: 12/03/18 06:29 Dose: 300 mls/hr Meropenem 1 gm/ Dextrose 100 mls @ 200 mls/hr IVPB Q8H-IV [facility] Last Admin: 12/03/18 17:20 Dose: 200 mls/hr Insulin Aspart (Novolog Vial Sliding Scale -) 1 vial SQ ACHS [facility]; Protocol Last Admin: 12/03/18 17:19 Dose: Not Given Levothyroxine Sodium (Synthroid -) 100 mcg PO DAILY@0700 [facility] Last Admin: 12/03/18 06:29 Dose: 100 mcg Lisinopril (Prinivil) 20 mg PO DAILY [facility] Last Admin: 12/03/18 10:00 Dose: 20 mg Oxycodone HCl (Roxicodone -) 10 mg PO Q6H PRN PRN Reason: PAIN SCALE 4-6 Last Admin: 12/03/18 10:22 Dose: 10 mg Pantoprazole Sodium (Protonix -) 20 mg PO DAILY [facility] Last Admin: 12/03/18 10:00 Dose: 20 mg Simethicone (Mylicon -) 80 mg PO Q6H PRN PRN Reason: INDIGESTION Last Admin: 12/03/18 12:01 Dose: 80 mg - Objective Vital Signs: Vital Signs Temperature 98.8 F 12/03/18 16:07 Pulse Rate 68 12/03/18 16:07 Respiratory Rate 22 H 12/03/18 16:07 Blood Pressure 135/57 L 12/03/18 16:07 O2 Sat by Pulse Oximetry (%) 92 L 12/03/18 09:00 Constitutional: Yes: No Distress HENT: Yes: Atraumatic Neck: Yes: Supple Cardiovascular: Yes: Regular Rate and Rhythm Respiratory: Yes: Rhonchi Gastrointestinal: Yes: Normal Bowel Sounds Extremities: Yes: Other (b/l teresa cellulitis) Edema: Yes Edema: LLE: 1+ Neurological: Yes: Alert, Oriented Labs: CBC, BMP 11/27/18 05:20 11/27/18 05:20 Problem List - Problems (1) Cellulitis Assessment/Plan: on iv abx wound care dressing change Code(s): L03.90 - CELLULITIS, UNSPECIFIED (2) 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
[2018-12-03] MEDS: LINEZOLID 600 MG TABLET (RESTRICTED TO ID) PO SCH (22:54)
[2018-12-04] MEDS: MEROPENEM 1 GM in DEXTROSE 5%-WATER 100 ML IVPB SCH ×3 (01:52→09:56)
[2018-12-04] MEDS ORDERED: PT OWN MED DRAWER 7, Y5N ONE ×4 (05:48→22:15)
[2018-12-04] MEDS: GLIMEPIRIDE 2 MG TABLET (FP) PO SCH (06:12)
[2018-12-04] MEDS: INSULIN SLIDING SCALE (NOVOLOG) 1 VIAL SQ SCH ×4 (06:12→22:26)
[2018-12-04] MEDS: LEVOTHYROXINE NA 100 MCG TABLET (FP) PO SCH (06:12)
[2018-12-04] MEDS: LISINOPRIL 20 MG TABLET (FP) PO SCH (10:02)
[2018-12-04] MEDS: ASPIRIN 81 MG CHEWABLE TABLETS PO SCH (10:02)
[2018-12-04] MEDS: FUROSEMIDE 40 MG TABLET (FP) PO SCH (10:02)
[2018-12-04] MEDS: SIMETHICONE 80 MG TAB.CHEW (FP) PO PRN ×2 (10:02→18:27)
[2018-12-04] MEDS: amLODIPine BESYLATE 5 MG TABLET (FP) PO SCH (10:02)
[2018-12-04] MEDS: PANTOPRAZOLE 20 MG TABLET (FP) PO SCH (10:02)
[2018-12-04] MEDS: oxyCODONE HCL 5 MG TABLET PO PRN ×2 (10:03→22:26)
[2018-12-04] MEDS: MAG HYDROX/AL HYDROX/SIMETH 30 ML UNIT-DOSE CUP PO PRN ×2 (10:03→18:26)
[2018-12-04] MEDS: BUDESONIDE/FORMETEROL FUMARATE 160/4.5 mcg INHALER IH SCH ×2 (12:09→22:28)
[2018-12-04] MEDS: LINEZOLID 600 MG TABLET (RESTRICTED TO ID) PO SCH ×2 (12:20→22:26)
--- NOTE | 2018-12-04 16:13 | PN ---
Progress Note, Physician History of Present Illness: feels much better wounds looking better - Current Medication List Current Medications: Active Medications Acetaminophen (Tylenol -) 650 mg PO Q6H PRN PRN Reason: FEVER Last Admin: 12/02/18 23:00 Dose: 650 mg Al Hydroxide/Mg Hydroxide (Mylanta Oral Suspension -) 30 ml PO Q6H PRN PRN Reason: DYSPEPSIA Last Admin: 12/04/18 10:03 Dose: 30 ml Amlodipine Besylate (Norvasc -) 5 mg PO DAILY [facility] Last Admin: 12/04/18 10:02 Dose: 5 mg Aspirin (Asa -) 81 mg PO DAILY [facility] Last Admin: 12/04/18 10:02 Dose: 81 mg Budesonide/Formoterol Fumarate (Symbicort 160/4.5mcg -) 2 puff IH BID [facility] Last Admin: 12/04/18 12:09 Dose: 2 puff Docusate Sodium (Colace -) 100 mg PO Q12H PRN PRN Reason: CONSTIPATION Last Admin: 12/03/18 12:01 Dose: 100 mg Furosemide (Lasix -) 40 mg PO DAILY [facility] Last Admin: 12/04/18 10:02 Dose: 40 mg Glimepiride (Amaryl -) 2 mg PO DAILY@0700 [facility] Last Admin: 12/04/18 06:12 Dose: 2 mg Meropenem 1 gm/ Dextrose 100 mls @ 200 mls/hr IVPB Q8H-IV [facility] Last Admin: 12/04/18 09:56 Dose: Not Given Insulin Aspart (Novolog Vial Sliding Scale -) 1 vial SQ ACHS [facility]; Protocol Last Admin: 12/04/18 12:10 Dose: Not Given Levothyroxine Sodium (Synthroid -) 100 mcg PO DAILY@0700 [facility] Last Admin: 12/04/18 06:12 Dose: 100 mcg Linezolid (Zyvox (Restricted To Id) -) 600 mg PO BID [facility] Last Admin: 12/04/18 12:20 Dose: 600 mg Lisinopril (Prinivil) 20 mg PO DAILY [facility] Last Admin: 12/04/18 10:02 Dose: 20 mg Oxycodone HCl (Roxicodone -) 10 mg PO Q6H PRN PRN Reason: PAIN SCALE 4-6 Last Admin: 12/04/18 10:03 Dose: 10 mg Pantoprazole Sodium (Protonix -) 20 mg PO DAILY [facility] Last Admin: 12/04/18 10:02 Dose: 20 mg Simethicone (Mylicon -) 80 mg PO Q6H PRN PRN Reason: INDIGESTION Last Admin: 12/04/18 10:02 Dose: 80 mg - Objective Vital Signs: Vital Signs Temperature 98.4 F 12/04/18 15:00 Pulse Rate 81 12/04/18 15:00 Respiratory Rate 20 12/04/18 15:00 Blood Pressure 120/65 12/04/18 15:00 O2 Sat by Pulse Oximetry (%) 92 L 12/03/18 21:00 Constitutional: Yes: No Distress, Calm Neck: Yes: Supple Cardiovascular: Yes: Regular Rate and Rhythm Respiratory: Yes: Regular, CTA Bilaterally Gastrointestinal: Yes: Normal Bowel Sounds, Soft Extremities: Yes: Other Neurological: Yes: Alert, Oriented Psychiatric: Yes: Alert, Oriented Labs: CBC, BMP 11/27/18 05:20 11/27/18 05:20 Assessment/Plan Problem List - Problems (1) Cellulitis Code(s): L03.90 - CELLULITIS, UNSPECIFIED (2) 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
--- NOTE | 2018-12-04 18:42 | PN ---
Progress Note, Physician - Current Medication List Current Medications: Active Medications Acetaminophen (Tylenol -) 650 mg PO Q6H PRN PRN Reason: FEVER Last Admin: 12/02/18 23:00 Dose: 650 mg Al Hydroxide/Mg Hydroxide (Mylanta Oral Suspension -) 30 ml PO Q6H PRN PRN Reason: DYSPEPSIA Last Admin: 12/04/18 18:26 Dose: 30 ml Amlodipine Besylate (Norvasc -) 5 mg PO DAILY [facility] Last Admin: 12/04/18 10:02 Dose: 5 mg Aspirin (Asa -) 81 mg PO DAILY [facility] Last Admin: 12/04/18 10:02 Dose: 81 mg Budesonide/Formoterol Fumarate (Symbicort 160/4.5mcg -) 2 puff IH BID [facility] Last Admin: 12/04/18 12:09 Dose: 2 puff Docusate Sodium (Colace -) 100 mg PO Q12H PRN PRN Reason: CONSTIPATION Last Admin: 12/03/18 12:01 Dose: 100 mg Furosemide (Lasix -) 40 mg PO DAILY [facility] Last Admin: 12/04/18 10:02 Dose: 40 mg Glimepiride (Amaryl -) 2 mg PO DAILY@0700 [facility] Last Admin: 12/04/18 06:12 Dose: 2 mg Insulin Aspart (Novolog Vial Sliding Scale -) [address] [facility]; Protocol Last Admin: 12/04/18 18:26 Dose: Not Given Levothyroxine Sodium (Synthroid -) 100 mcg PO DAILY@0700 [facility] Last Admin: 12/04/18 06:12 Dose: 100 mcg Linezolid (Zyvox (Restricted To Id) -) 600 mg PO BID [facility] Last Admin: 12/04/18 12:20 Dose: 600 mg Lisinopril (Prinivil) 20 mg PO DAILY [facility] Last Admin: 12/04/18 10:02 Dose: 20 mg Oxycodone HCl (Roxicodone -) 10 mg PO Q6H PRN PRN Reason: PAIN SCALE 4-6 Last Admin: 12/04/18 10:03 Dose: 10 mg Pantoprazole Sodium (Protonix -) 20 mg PO DAILY [facility] Last Admin: 12/04/18 10:02 Dose: 20 mg Simethicone (Mylicon -) 80 mg PO Q6H PRN PRN Reason: INDIGESTION Last Admin: 12/04/18 18:27 Dose: 80 mg - Objective Vital Signs: Vital Signs Temperature 97.8 F 12/04/18 18:00 Pulse Rate 77 12/04/18 18:00 Respiratory Rate 20 12/04/18 18:00 Blood Pressure 147/81 12/04/18 18:00 O2 Sat by Pulse Oximetry (%) 92 L 12/03/18 21:00 Constitutional: Yes: No Distress HENT: Yes: Atraumatic Neck: Yes: Supple Cardiovascular: Yes: Regular Rate and Rhythm Respiratory: Yes: CTA Bilaterally Gastrointestinal: Yes: Normal Bowel Sounds Extremities: Yes: Other (cellulitis b/l teresa) Neurological: Yes: Alert, Oriented Labs: CBC, BMP 11/27/18 05:20 11/27/18 05:20 Problem List - Problems (1) Cellulitis Assessment/Plan: on iv abx wound care dressing change Code(s): L03.90 - CELLULITIS, UNSPECIFIED (2) 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
[2018-12-05] MEDS ORDERED: PT OWN MED DRAWER 7, Y5N ONE ×3 (05:59→20:52)
[2018-12-05] MEDS: GLIMEPIRIDE 2 MG TABLET (FP) PO SCH (06:28)
[2018-12-05] MEDS: LEVOTHYROXINE NA 100 MCG TABLET (FP) PO SCH (06:28)
[2018-12-05] MEDS: oxyCODONE HCL 5 MG TABLET PO PRN ×3 (06:34→20:56)
[2018-12-05] MEDS: INSULIN SLIDING SCALE (NOVOLOG) 1 VIAL SQ SCH ×4 (07:02→21:46)
[2018-12-05] MEDS: LISINOPRIL 20 MG TABLET (FP) PO SCH (11:44)
[2018-12-05] MEDS: FUROSEMIDE 40 MG TABLET (FP) PO SCH (11:44)
[2018-12-05] MEDS: amLODIPine BESYLATE 5 MG TABLET (FP) PO SCH (11:44)
[2018-12-05] MEDS: ASPIRIN 81 MG CHEWABLE TABLETS PO SCH (11:44)
[2018-12-05] MEDS: LINEZOLID 600 MG TABLET (RESTRICTED TO ID) PO SCH ×2 (11:44→21:01)
[2018-12-05] MEDS: PANTOPRAZOLE 20 MG TABLET (FP) PO SCH (11:45)
[2018-12-05] MEDS: BUDESONIDE/FORMETEROL FUMARATE 160/4.5 mcg INHALER IH SCH ×2 (11:45→21:01)
[2018-12-05] MEDS: ACETAMINOPHEN 325 MG TABLET (FP) PO PRN (12:11)
[2018-12-05] MEDS: MAG HYDROX/AL HYDROX/SIMETH 30 ML UNIT-DOSE CUP PO PRN (15:37)
[2018-12-05] MEDS: SIMETHICONE 80 MG TAB.CHEW (FP) PO PRN (15:39)
--- NOTE | 2018-12-05 18:19 | PN ---
Progress Note, Physician History of Present Illness: doing well - Current Medication List Current Medications: Active Medications Acetaminophen (Tylenol -) 650 mg PO Q6H PRN PRN Reason: FEVER Last Admin: 12/05/18 12:11 Dose: 650 mg Al Hydroxide/Mg Hydroxide (Mylanta Oral Suspension -) 30 ml PO Q6H PRN PRN Reason: DYSPEPSIA Last Admin: 12/05/18 15:37 Dose: 30 ml Amlodipine Besylate (Norvasc -) 5 mg PO DAILY [facility] Last Admin: 12/05/18 11:44 Dose: 5 mg Aspirin (Asa -) 81 mg PO DAILY [facility] Last Admin: 12/05/18 11:44 Dose: 81 mg Budesonide/Formoterol Fumarate (Symbicort 160/4.5mcg -) 2 puff IH BID [facility] Last Admin: 12/05/18 11:45 Dose: 2 puff Docusate Sodium (Colace -) 100 mg PO Q12H PRN PRN Reason: CONSTIPATION Last Admin: 12/03/18 12:01 Dose: 100 mg Furosemide (Lasix -) 40 mg PO DAILY [facility] Last Admin: 12/05/18 11:44 Dose: 40 mg Glimepiride (Amaryl -) 2 mg PO DAILY@0700 [facility] Last Admin: 12/05/18 06:28 Dose: 2 mg Insulin Aspart (Novolog Vial Sliding Scale -) 1 vial SQ ACHS [facility]; Protocol Last Admin: 12/05/18 11:00 Dose: Not Given Levothyroxine Sodium (Synthroid -) 100 mcg PO DAILY@0700 [facility] Last Admin: 12/05/18 06:28 Dose: 100 mcg Linezolid (Zyvox (Restricted To Id) -) 600 mg PO BID [facility] Last Admin: 12/05/18 11:44 Dose: 600 mg Lisinopril (Prinivil) 20 mg PO DAILY [facility] Last Admin: 12/05/18 11:44 Dose: 20 mg Oxycodone HCl (Roxicodone -) 10 mg PO Q6H PRN PRN Reason: PAIN SCALE 4-6 Last Admin: 12/05/18 12:11 Dose: 10 mg Pantoprazole Sodium (Protonix -) 20 mg PO DAILY [facility] Last Admin: 12/05/18 11:45 Dose: 20 mg Simethicone (Mylicon -) 80 mg PO Q6H PRN PRN Reason: INDIGESTION Last Admin: 12/05/18 15:39 Dose: 80 mg - Objective Vital Signs: Vital Signs Temperature 98.7 F 12/05/18 06:00 Pulse Rate 82 12/05/18 06:00 Respiratory Rate 20 12/05/18 06:00 Blood Pressure 132/82 12/05/18 06:00 O2 Sat by Pulse Oximetry (%) 91 L 12/04/18 21:00 Constitutional: Yes: No Distress HENT: Yes: Atraumatic Neck: Yes: Supple Cardiovascular: Yes: Regular Rate and Rhythm Respiratory: Yes: CTA Bilaterally Gastrointestinal: Yes: Normal Bowel Sounds Extremities: Yes: WNL Neurological: Yes: Alert, Oriented Labs: CBC, BMP 11/27/18 05:20 11/27/18 05:20 Problem List - Problems (1) Cellulitis Assessment/Plan: on iv abx wound care dressing change Code(s): L03.90 - CELLULITIS, UNSPECIFIED (2) 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
--- NOTE | 2018-12-05 18:20 | DS ---
Physical Examination Vital Signs: Vital Signs Temperature 98.7 F 12/05/18 06:00 Pulse Rate 82 12/05/18 06:00 Respiratory Rate 20 12/05/18 06:00 Blood Pressure 132/82 12/05/18 06:00 O2 Sat by Pulse Oximetry (%) 91 L 12/04/18 21:00 Labs: CBC, BMP 11/27/18 05:20 11/27/18 05:20 Discharge Summary Reason For Visit: CELLULITIS Current Active Problems Cellulitis (Acute) Diabetes (Acute) HTN (hypertension) (Acute) - Instructions - Home Medications Comprehensive Discharge Medication List: Ambulatory Orders Acetaminophen [Tylenol .Extra-Strength -] 500 mg PO Q6H PRN 11/26/18 Albuterol 2.5/Ipratropium 0.5 [Duoneb -] 1 amp NEB Q6H PRN 11/26/18 Albuterol Sulfate Inhaler - [Ventolin HFA Inhaler -] 2 inh PO Q6H 11/26/18 Amlodipine Besylate 5 mg PO DAILY 11/26/18 Ammonium Lactate Cream [Lac-Hydrin 12% Cream -] 1 applic TP QID 11/26/18 Ascorbic Acid [Vitamin C -] 500 mg PO DAILY 11/26/18 Aspirin [ASA -] 81 mg PO DAILY 11/26/18 Bismuth Subsalicylate [Pepto-Bismol -] 15 ml PO ASDIR PRN 11/26/18 Budesonide/Formeterol Fumarate [SYMBICORT 160/4.5mcg -] 2 inh PO BID 11/26/18 Celecoxib [CeleBREX -] 100 mg PO BID 11/26/18 Chloroxylenol 1 gm MC DAILY 11/26/18 Glimepiride [Amaryl -] 2 mg PO DAILY 11/26/18 Hydrocodone/Acetaminophen [Hydrocodone-Acetamin 7.5-325] 1 each PO Q6H 11/26/18 Lactobacillus Acidophilus [Bacid -] 1 each PO BID 11/26/18 Levothyroxine [Synthroid -] 100 mcg PO DAILY 11/26/18 Lisinopril 20 mg PO DAILY 11/26/18 Mag Hydrox/Al Hydrox/Simeth [Mylanta Oral Suspension -] 30 ml PO Q6H 11/26/18 Methyl Salicylate/Menth/Camph [Bengay Ultra Strength Cream] 113 gm TP BID Multivitamin,Ther and Minerals [Vitamin and Minerals] 1 each PO DAILY 11/26/18 Omeprazole 20 mg PO DAILY 11/26/18 Ondansetron [Zofran Odt -] 4 mg SL TID PRN 11/26/18 Simethicone [Gas-X] 125 mg PO QID 11/26/18 Umeclidinium [place] [Incruse Ellipta] 1 puff IH DAILY 11/26/18
[2018-12-06] MEDS: GLIMEPIRIDE 2 MG TABLET (FP) PO SCH (06:30)
[2018-12-06] MEDS: LEVOTHYROXINE NA 100 MCG TABLET (FP) PO SCH (06:30)
[2018-12-06] MEDS: INSULIN SLIDING SCALE (NOVOLOG) 1 VIAL SQ SCH (06:30)
[2018-12-06 09:07] VITALS: BP 157/65; PULSE 103; TEMP 98.2
[2018-12-06] MEDS: FUROSEMIDE 40 MG TABLET (FP) PO SCH (09:51)
[2018-12-06] MEDS: LISINOPRIL 20 MG TABLET (FP) PO SCH (09:51)
[2018-12-06] MEDS: LINEZOLID 600 MG TABLET (RESTRICTED TO ID) PO SCH (09:51)
[2018-12-06] MEDS: ASPIRIN 81 MG CHEWABLE TABLETS PO SCH (09:51)
[2018-12-06] MEDS: PANTOPRAZOLE 20 MG TABLET (FP) PO SCH (09:51)
[2018-12-06] MEDS: amLODIPine BESYLATE 5 MG TABLET (FP) PO SCH (09:51)
[2018-12-06] MEDS: BUDESONIDE/FORMETEROL FUMARATE 160/4.5 mcg INHALER IH SCH (09:52)
--- NOTE | 2018-12-06 20:34 | DS ---
Physical Examination Vital Signs: Vital Signs Temperature 98.2 F 12/06/18 09:03 Pulse Rate 103 H 12/06/18 09:03 Respiratory Rate 20 12/06/18 09:03 Blood Pressure 157/65 12/06/18 09:03 O2 Sat by Pulse Oximetry (%) 91 L 12/06/18 09:00 Constitutional: Yes: No Distress HENT: Yes: Atraumatic Neck: Yes: Supple Cardiovascular: Yes: Regular Rate and Rhythm Respiratory: Yes: CTA Bilaterally Gastrointestinal: Yes: Normal Bowel Sounds Extremities: Yes: Other Edema: Yes Neurological: Yes: Alert, Oriented Labs: CBC, BMP 11/27/18 05:20 11/27/18 05:20 Discharge Summary Reason For Visit: CELLULITIS Condition: Improved - Instructions Disposition: [facility] - Home Medications Comprehensive Discharge Medication List: Ambulatory Orders Acetaminophen [Tylenol .Extra-Strength -] 500 mg PO Q6H PRN 11/26/18 Albuterol 2.5/Ipratropium 0.5 [Duoneb -] 1 amp NEB Q6H PRN 11/26/18 Albuterol Sulfate Inhaler - [Ventolin HFA Inhaler -] 2 inh PO Q6H 11/26/18 Amlodipine Besylate 5 mg PO DAILY 11/26/18 Ammonium Lactate Cream [Lac-Hydrin 12% Cream -] 1 applic TP QID 11/26/18 Ascorbic Acid [Vitamin C -] 500 mg PO DAILY 11/26/18 Aspirin [ASA -] 81 mg PO DAILY 11/26/18 Bismuth Subsalicylate [Pepto-Bismol -] 15 ml PO ASDIR PRN 11/26/18 Budesonide/Formeterol Fumarate [SYMBICORT 160/4.5mcg -] 2 inh PO BID 11/26/18 Celecoxib [CeleBREX -] 100 mg PO BID 11/26/18 Chloroxylenol 1 gm MC DAILY 11/26/18 Glimepiride [Amaryl -] 2 mg PO DAILY 11/26/18 Hydrocodone/Acetaminophen [Hydrocodone-Acetamin 7.5-325] 1 each PO Q6H 11/26/18 Lactobacillus Acidophilus [Bacid -] 1 each PO BID 11/26/18 Levothyroxine [Synthroid -] 100 mcg PO DAILY 11/26/18 Lisinopril 20 mg PO DAILY 11/26/18 Mag Hydrox/Al Hydrox/Simeth [Mylanta Oral Suspension -] 30 ml PO Q6H 11/26/18 Methyl Salicylate/Menth/Camph [Bengay Ultra Strength Cream] 113 gm TP BID Multivitamin,Ther and Minerals [Vitamin and Minerals] 1 each PO DAILY 11/26/18 Omeprazole 20 mg PO DAILY 11/26/18 Ondansetron [Zofran Odt -] 4 mg SL TID PRN 11/26/18 Simethicone [Gas-X] 125 mg PO QID 11/26/18 Umeclidinium [place] [Incruse Ellipta] 1 puff IH DAILY 11/26/18 dc snf
--- NOTE | 2018-12-07 10:16 | PN ---
Progress Note, Physician History of Present Illness: stable no new issues all wound cx noted patient doing well - Objective Vital Signs: Vital Signs Temperature 98.2 F 12/06/18 09:03 Pulse Rate 103 H 12/06/18 09:03 Respiratory Rate 20 12/06/18 09:03 Blood Pressure 157/65 12/06/18 09:03 O2 Sat by Pulse Oximetry (%) 91 L 12/06/18 09:00 Constitutional: Yes: No Distress, Calm, Obese Cardiovascular: Yes: Regular Rate and Rhythm Respiratory: Yes: Regular, CTA Bilaterally Gastrointestinal: Yes: Normal Bowel Sounds, Soft Musculoskeletal: Yes: WNL Extremities: Yes: Other Wound/Incision: Yes: Dressing Dry and Intact Neurological: Yes: Alert, Oriented Psychiatric: Yes: Alert, Oriented Labs: CBC, BMP 11/27/18 05:20 11/27/18 05:20 Assessment/Plan Problem List - Problems (1) Cellulitis Code(s): L03.90 - CELLULITIS, UNSPECIFIED (2) 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
== END 2018-12-06 12:32 | DRG 603 ==
LOC: JER 14:14 → JERBED 16:42 → J7W 11-27 00:22 → J4S 11-27 09:26
PROVIDERS: ADMIT Internal Medicine; ATTEND Internal Medicine
DX: L03.116 Cellulitis of left lower limb (principal); I87.333 Chronic venous hypertension (idiopathic) with ulcer and inflammation of bilateral lower extremity; Z68.43 Body mass index [BMI] 50.0-59.9, adult; L03.115 Cellulitis of right lower limb; J44.9 Chronic obstructive pulmonary disease, unspecified; K21.9 Gastro-esophageal reflux disease without esophagitis; I10 Essential (primary) hypertension; E11.9 Type 2 diabetes mellitus without complications; E66.9 Obesity, unspecified; Z79.84 Long term (current) use of oral hypoglycemic drugs; E03.9 Hypothyroidism, unspecified; Z85.038 Personal history of other malignant neoplasm of large intestine
CPT/HCPCS: 36415; 71045-TC-FY; 80053; 82962; 83036; 85025; 87040; 87186; 93005; 93010; 97116-GP; 97161-GP; 99283-25; G0463-25; J1644